=== PATIENT | female | born 1980 | race Caucasian/White ===

== ENCOUNTER 2022-07-23 17:14 | Emergency (ER) | payer OTHER, SELFPAY ==
--- NOTE | ~2022-07-23 | XR_ITS ---
EXAMINATION: XR HAND, RIGHT CLINICAL INFORMATION: Crush injury COMPARISON: None available. TECHNIQUE: PA, lateral, and oblique views of the right hand. FINDINGS: There is a minimally displaced fracture through the distal end of the distal first phalanx. The bones and soft tissues are otherwise unremarkable. No other fracture. Alignment is anatomic. Joint spaces are maintained. No erosions or soft tissue calcifications. XR/XR hand RT 2V IMPRESSION: Fracture of the distal end of the distal phalanx of the thumb.
[2022-07-23 17:25] VITALS: BP 129/85; PULSE 72; RESP 18; TEMP 36.9; O2SAT 99; BMI 28.3
--- NOTE | 2022-07-23 17:25 | ED.GENADULT ---
HPI - General Adult General Chief complaint: Extremity Injury, Upper Stated complaint: ? broken finger right hand Time Seen by Provider: 07/23/22 17:37 Source: patient and RN notes reviewed Mode of arrival: ambulatory Limitations: no limitations History of Present Illness HPI narrative: This is a 42-year-old female who presents emergency department with complaints right thumb pain since today. Patient reports that she accidentally slammed her right thumb in her front door. Patient immediately felt and reported to the emergency department today. Denies any numbness tingling. Reports pain with movement and with palpation. Denies history of similar symptoms in the past. No other complaints or concerns at this time MD complaint: Right thumb pain Onset (ago): minute(s) Location: upper extremity Severity: moderate Quality: aching Pain Consistency: constant Relieving factors: immobilization Exacerbating factors: movement Associated symptoms: denies other symptoms Treatments prior to arrival: none Related Data Previous Rx's Medication Instructions Recorded ibuprofen 800 mg tablet 800 mg PO Q8H PRN pain #45 tabs 07/23/22 Allergies Allergy/AdvReac Type Severity Reaction Status Date / Time Unable to Assess Allergy Unverified 07/23/22 17:26 Review of Systems Review of Systems: Constitutional: No Weight loss, No Fever, No Chills ENT/Mouth: No Ear Pain, No Nasal Congestion, No Sinus Pain, No Hoarseness, No sore throat, No Rhinorrhea, No Swallowing Difficulty Cardiovascular: No Chest Pain, No SOB Respiratory: No Cough, No Sputum, No Wheezing Gastrointestinal: No Nausea, No Vomiting, No Diarrhea, No Constipation, No Abdominal pain Genitourinary: No Dysuria, No Urinary Frequency, No Hematuria, No Urinary Incontinence/retention, No Urgency, No Flank Pain Musculoskeletal:+ joint pain, No Myalgias, No Joint Swelling Skin: No Skin Lesions, No rash Neuro: No Weakness, No Numbness, No Paresthesias PMFSH Social History Social History Advance Directives: No Advance Directives Information Provided: No Physical Exam ED Vital Signs: Vital Signs - 24 hr 07/23/22 17:25 07/23/22 18:16 Temperature 98.4 F 98.4 F Pulse Rate 72 84 Respiratory Rate 18 18 Blood Pressure 129/85 124/79 Pulse Oximetry 99 98 Oxygen Delivery Method Room Air Room Air BMI result Body Mass Index 28.3 Const Other: General: Awake, alert, and oriented X3. No acute distress. HEENT: Normal inspection CVS: Normal heart rate and rhythm. Pulses normal. Respiratory: No respiratory distress Skin: Warm, dry, no rashes noted to exposed skin. Normal skin color. Normal skin turgor. Extremities: Tenderness to palpation over the right 1st distal phalanx, able to flex and extend move entire thumb without difficulty. Distal sensation and circulation intact. No open wounds or drainage. Neuro: Oriented X 3. No motor deficit. No sensory deficit. Course Course Course Narrative: RME performed by Dipti Son PA-C. Patient is a 42 year old assigned female at presenting to the emergency department with right thumb pain. Patient slammed her right thumb in a door. Imaging ordered. Patient placed back in the waiting room pending room availability and results. Medications Administered Discontinued Medications Generic Name Dose Route Start Last Admin Trade Name Freq PRN Reason Stop Dose Admin Ketorolac Tromethamine 30 mg 07/23/22 17:45 07/23/22 17:59 Ketorolac Tromethamine 30 Mg/Ml Vial IM 07/23/22 17:46 30 mg ONCE ONE Administration Procedures Orthopedic Splinting/Casting Injury #1: Side: right Upper Extremity Injury Location: finger Upper Extremity Immobilizer: aluminum form splint, finger (other) and marisa tape Additional Comments: Distal sensation intact. Medical Decision Making Medical Decision Making MDM Narrative: 42-year-old female presenting to emergency department for right thumb pain since today. Patient accidentally slammed her right thumb in the house door. X-ray revealing distal phalanx fracture. Patient's right thumb placed in finger splint and given referral to [facility] for further management. Patient medicated in the department with Toradol 30 mg IM. This is not open fracture therefore I will not cover with prophylactic antibiotics. Discharge on prescription for ibuprofen, given precautions on when to return. Patient understands and agrees with plan. Differential Diagnosis Differential Diagnoses: The differential diagnosis associated with the presentation includes Right thumb fracture, contusion, hematoma, dislocation Independent Interpretation I performed an independent interpretation of an: Plain X-Ray Interpretation: I reviewed the x-ray and agree with radiology report. Radiology Impression Discussion of test interpretation with radiology: I have reviewed the radiologist's reading. Radiologist Impression: EXAMINATION: XR HAND, RIGHT CLINICAL INFORMATION: Crush injury? COMPARISON: None available.? TECHNIQUE: PA, lateral, and oblique views of the right hand. FINDINGS: There is a minimally displaced fracture through the distal end of the distal first phalanx. The bones and soft tissues are otherwise unremarkable. No other fracture. Alignment is anatomic. Joint spaces are maintained. No erosions or soft tissue calcifications.? XR/XR hand RT 2V IMPRESSION: Fracture of the distal end of the distal phalanx of the thumb. ? Dictated By: Stoney Hightower MD Signed By: <Electronically signed by Stoney Hightower MD in OV> 07/23/22 182 DD/ [id number] Discharge Plan Discharge Clinical Impression: Fracture of thumb Patient Disposition: Home, Self-Care Instructions: Thumb Fracture (ED) Additional Instructions: Please keep your thumb and the splint until you are seen by Orthopedics. Call Monday to make an appointment. Take prescribed medication as directed. Take with food. Ice and elevate your right thumb as this will help with the inflammation and pain. If any new or worsening symptoms occur please return for re-evaluation. Prescriptions: New ibuprofen 800 mg tablet 800 mg PO Q8H PRN (Reason: pain) Qty: 45 0RF [place] [facility] [place] [facility] [Provider Group] Interventions: ED Discharge Assessment Last Done: 07/23/22 18:52 Discharge Date/Time: 07/23/22 18:52
[2022-07-23] MEDS: Ketorolac Tromethamine 30 MG/ML VIAL IM (17:59)
[2022-07-23 18:16] VITALS: BP 124/79; PULSE 84; RESP 18; TEMP 36.9; O2SAT 98
== END 2022-07-23 18:52 | disposition home or self-care (01) ==
PROVIDERS: Emergency Provider Emergency Medicine
DX: S62.521A Displaced fracture of distal phalanx of right thumb, initial encounter for closed fracture (principal); W23.0XXA Caught, crushed, jammed, or pinched between moving objects, initial encounter; Y93.89 Activity, other specified; Y92.038 Other place in apartment as the place of occurrence of the external cause; Y99.9 Unspecified external cause status
CPT/HCPCS: 29130; 73120; 96372; 99283; 99284; J1885

== ENCOUNTER → 2022-08-04 15:05 | Outpatient (BNVA) | payer OTHER, SELFPAY | PROVIDERS: Visit Provider Physician Assistant | DX: S62.501B Fracture of unspecified phalanx of right thumb, initial encounter for open fracture (principal) | CPT/HCPCS: 99202 ==

== ENCOUNTER 2022-08-19 07:23 | Outpatient (REF) | payer OTHER, SELFPAY ==
--- NOTE | ~2022-08-19 | XR_ITS ---
EXAMINATION: XR HAND, RIGHT CLINICAL INFORMATION: Pain in unspecified hand COMPARISON: Right hand 07/23/2022 TECHNIQUE: PA, lateral, and oblique views of the right hand. FINDINGS: There is no significant change in a minimally displaced fractures of the distal end of the distal first phalanx. The fracture cleft is slightly less distinct consistent with healing. No significant callus formation. The bones and soft tissues are otherwise unremarkable. No other fracture. Alignment is anatomic. Joint spaces are maintained. XR/XR hand RT min 3V IMPRESSION: Healing fracture of the distal end of the distal first phalanx.
== END 2022-08-19 07:24 | disposition home or self-care (01) ==
LOC: HO.HOSX 07:23
PROVIDERS: Visit Provider Physician Assistant
DX: S62.501B Fracture of unspecified phalanx of right thumb, initial encounter for open fracture (principal)
CPT/HCPCS: 73130; 99212

== ENCOUNTER 2023-04-28 23:04 | Emergency (ER) | payer MEDICAID, SELFPAY ==
--- NOTE | ~2023-04-28 | US_ITS ---
EXAMINATION: US ABDOMEN LIMITED CLINICAL INFORMATION: Epigastric pain, question gallbladder stone. COMPARISON: None available. TECHNIQUE: Real-time imaging of the right upper quadrant abdominal viscera. FINDINGS: PANCREAS: The visualized proximal portion of the pancreas is unremarkable. The distal portion is obscured secondary to overlying bowel gas. LIVER: The liver is normal in size. The liver contour is normal. Parenchymal echogenicity is normal. There is a 1.0 cm echogenic lesion in the left hepatic lobe, most suggestive of a hemangioma. Mild intrahepatic biliary ductal dilatation noted. GALLBLADDER: There is a wall echo shadow complex in the gallbladder, consistent with cholelithiasis. Limited evaluation for pericholecystic fluid in this setting. Gallbladder wall thickness appears near the upper limits of normal. Patient reports epigastric pain during the exam. COMMON BILE DUCT: Mildly dilated measuring up to 0.7 cm in diameter. RIGHT KIDNEY: No hydronephrosis. There is a 0.6 cm echogenic, nonshadowing focus in the lower pole cortex which may represent a calculus or angiomyolipoma.. The kidney measures 11.0 cm in maximum dimension. FREE FLUID: None. US/US abdomen limited IMPRESSION: 1. Cholelithiasis with borderline gallbladder wall thickening. Mild intrahepatic and extrahepatic biliary ductal dilatation, raising concern for associated choledocholithiasis. Recommend further evaluation with MRCP. 2. Echogenic lesion in the left hepatic lobe, suggestive of a hemangioma, which could be more definitively assessed with MRI. 3. Echogenic, nonshadowing focus in the lower pole of the right kidney which may represent a calculus or angiomyolipoma.
--- NOTE | 2023-04-28 23:05 | ECG_ITS ---
Test Reason : CHEST PAIN Blood Pressure : / mmHG Vent. Rate : 068 BPM Atrial Rate : 068 BPM P-R Int : 160 ms QRS Dur : 084 ms QT Int : 386 ms P-R-T Axes : 068 072 046 degrees QTc Int : 410 ms Normal sinus rhythm Nonspecific ST and T wave abnormality Borderline ECG No previous ECGs available Referred By: Generic ED Physician Electronically Signed By:REUBEN DAVIS
[2023-04-28 23:10] VITALS: BP 134/77; PULSE 65; RESP 18; TEMP 35.7; O2SAT 100; BMI 24.8
[2023-04-28 23:34] LABS: MANUAL DIFF FLAG NO
[2023-04-28 23:35] LABS: Basophils Absolute Auto 0.1 X10*3/uL (0.0-0.2); Basophils Percent Auto 0.6 % (0-2); Eosinophils Absolute Auto 0.1 X10*3/uL (0.0-0.4); Eosinophils Percent Auto 1.4 % (0-4); Hematocrit 40.3 % (37.0-47.0); Hemoglobin 13.3 g/dl (12.0-16.0); Imm Gran Abs Auto 0.02 X10*3/uL (0.00-0.03); Imm Gran Pct Auto 0.2 % (0.0-0.4); Lymphocytes Absolute Auto 3.7 X10*3/uL (1.2-4.9); Lymphocytes Percent Auto 44.8 % (20-40); Mean Corpuscular Hemoglobin 30.2 pg (27.0-33.0); Mean Corpuscular Volume 91.6 fL (80.0-98.0); Mean Platelet Volume 10.6 fL (9.4-12.3); Monocytes Absolute Auto 0.6 X10*3/uL (0.1-1.2); Monocytes Percent Auto 6.8 % (2-11); Neutrophils Absolute Auto 3.9 x10*3/uL (2.0-8.3); Neutrophils Percent Auto 46.2 % (45-73); Platelet Count 330 X10*3/uL (160-400); Red Cell Distribution Width 12.9 % (11.0-16.0); White Blood Count 8.4 X10*3/uL (4.8-10.8)
--- NOTE | 2023-04-28 23:49 | ED.CHESTPAIN ---
HPI - Chest Pain General Chief Complaint: Chest Pain Stated Complaint: Chest pain Time Seen by Provider: 04/28/23 23:47 Source: patient Mode of arrival: ambulatory Limitations: no limitations History of Present Illness HPI narrative: Patient with no significant past medical history except for anxiety comes here for few days of epigastric pain getting worse feel burning sensation radiating to the mid chest and the back no vomiting blood in the stool no history of ulcer gallstone patient took some Tums without much relief patient very anxious on arrival denies any history of gastritis gallstones in the past Related Data Previous Rx's Medication Instructions Recorded ibuprofen 800 mg tablet 800 mg PO Q8H PRN pain #45 tabs 07/23/22 Allergies Allergy/AdvReac Type Severity Reaction Status Date / Time No Known Allergies Allergy Verified 04/28/23 23:09 [No Known Allergies*] Review of Systems Review of Systems: Yes all other systems are reviewed and are negative [facility] Social History Social History Alcohol intake: never Patient Tobacco Use Status: Never used Tobacco Smoked in Last 30 Days: No Use of substances other than those prescribed or required for medical reasons: No Advance Directives: No Advance Directives Information Provided: Yes Patient : No Current occupational status: unemployed Current occupation: right hand dominant Physical Exam Vital Signs: Vital Signs: Last Vital Signs Temp 96.3 F L 04/28/23 23:10 Pulse 66 04/29/23 01:45 Resp 18 04/29/23 01:59 BP 112/64 04/29/23 01:45 Pulse Ox 100 04/28/23 23:10 O2 Del Method Room Air 04/28/23 23:10 BMI result Body Mass Index 24.8 Appearance: Alert. Oriented X3. No acute distress. Eyes: No pallor or icterus ENT: Pharynx normal. Oral Mucosa moist Neck: Normal inspection. Neck supple. CVS: Normal heart rate and rhythm. Pulses normal. Respiratory: No respiratory distress. Equal air entry bilateral, no wheezing/rales/rhonchi Abdomen: Soft and epigastric tenderness no rebound tenderness or guarding Bowel sounds are present, no mass palpable, no CVA tenderness Skin: Skin warm and dry. Normal skin color. Normal skin turgor. Extremities: No lower extremity edema. No calf tenderness Neuro: Oriented X 3. Medications Administered Discontinued Medications Generic Name Dose Route Start Last Admin Trade Name Missy PRN Reason Stop Dose Admin Al Hydroxide/Mg Hydroxide 30 ml 04/28/23 23:56 04/29/23 00:24 Magnesium Hydrox/Alum Hydrox 30 Ml Oral.Susp PO 04/28/23 23:57 30 ml ONCE ONE Administration Lidocaine HCl 15 ml 04/28/23 23:56 04/29/23 00:24 Lidocaine Hcl Viscous 2 % 15 Ml Solution MUCOUS MEM 04/28/23 23:57 15 ml ONCE ONE Administration Lorazepam 2 mg 04/28/23 23:56 04/29/23 00:24 Lorazepam 1 Mg Tablet PO 04/28/23 23:57 2 mg ONCE ONE Administration Morphine Sulfate 4 mg 04/29/23 01:46 04/29/23 01:59 Morphine Sulfate 4 Mg/Ml Cartridge IVPUSH 04/29/23 01:47 4 mg ONCE ONE Administration Protocol Ondansetron HCl 4 mg 04/29/23 01:47 04/29/23 01:59 Ondansetron Hcl 4 Mg/2 Ml Vial IVPUSH 04/29/23 01:48 4 mg ONCE ONE Administration Medical Decision Making Medical Decision Making [facility] Narrative: Patient felt better after lidocaine viscous and Maalox started having pain again more anxious now will get ultrasound to rule out biliary colic 330 am patient feeling much better no pain at this time no nausea no vomiting ultrasound showed slight dilated intrahepatic ducts but patient has no pain and LFTs are normal patient feeling much better to go home advised to follow with surgeon and do not take any fried foods Differential Diagnosis Differential Diagnoses: The differential diagnosis associated with the presentation includes Acute gastritis/pancreatitis/anxiety/biliary colic Admission/Observation Consideration of admission/observation: Escalation of care including admission/observation considered Lab Data [facility] Lab Attestation statement: I reviewed the patient's lab results. 04/28/23 23:19 04/28/23 23:19 Labs: Lab Results 04/28/23 Range/Units 23:19 WBC 8.4 (4.8-10.8) X10*3/uL RBC 4.40 (4.20-5.50) X10*6/uL Hgb 13.3 (12.0-16.0) g/dl Hct 40.3 (37.0-47.0) % MCV 91.6 (80.0-98.0) fL MCH 30.2 (27.0-33.0) pg MCHC 33.0 (31.0-35.0) g/dl RDW 12.9 (11.0-16.0) % Plt Count 330 (160-400) X10*3/uL MPV 10.6 (9.4-12.3) fL Immature Gran % (Auto) 0.2 (0.0-0.4) % Neut % (Auto) 46.2 (45-73) % Lymph % (Auto) 44.8 H (20-40) % [place] % (Auto) 6.8 (2-11) % Eos % (Auto) 1.4 (0-4) % Baso % (Auto) 0.6 (0-2) % Lymph # (Auto) 3.7 (1.2-4.9) X10*3/uL [place] # (Auto) 0.6 (0.1-1.2) X10*3/uL Eos # (Auto) 0.1 (0.0-0.4) X10*3/uL Baso # (Auto) 0.1 (0.0-0.2) X10*3/uL Abs Immat Gran (auto) 0.02 (0.00-0.03) X10*3/uL Absolute Neuts (auto) 3.9 (2.0-8.3) x10*3/uL Absolute Nucleated RBC 0.000 (0.0-0.012) X10*3/uL Nucleated RBC % (auto) 0.0 (0.0-0.2) /100WBC Sodium 145 (135-145) mmol/L Potassium 3.5 (3.3-5.1) mmol/L Chloride 104 (96-108) mmol/L Carbon Dioxide 30 H (22-29) mmol/L Anion Gap 15 (12-20) BUN 12 (9-16) mg/dL Creatinine 0.83 (0.5-1.4) mg/dL Estim Creat Clear Calc 79.2 Estimated GFR > 60 Random Glucose 119 H (60-115) mg/dL Calcium 10.1 (8.4-10.2) mg/dL Total Bilirubin 0.3 (0.0-1.0) mg/dL AST 45 H (5-31) U/L ALT 20 (0-31) U/L Alkaline Phosphatase 60 (39-117) U/L Troponin I High Sens < 2.7 (<3.5-17.0) ng/L Total Protein 7.8 (6.5-8.0) g/dL Albumin 4.7 (3.5-5.0) g/dL Independent Interpretation I performed an independent interpretation of an: EKG and Ultrasound Interpretation: Normal sinus rhythm heart rate 68 beats per minute normal interval normal axis no acute ST T wave changes impression normal EKG Radiology Impression Discussion of test interpretation with radiology: I have reviewed the radiologist's reading. Discharge Plan Discharge Clinical Impression: Acute gastritis Patient Disposition: Home, Self-Care Prescriptions: No Action ibuprofen 800 mg tablet 800 mg PO Q8H PRN (Reason: pain) Qty: 45 0RF
[2023-04-28 23:50] LABS: Alanine Aminotransferase 20 U/L (0-31); Albumin Level 4.7 g/dL (3.5-5.0); Alkaline Phosphatase 60 U/L (39-117); Anion Gap 15 (12-20); Aspartate Amino Transferase 45 U/L (5-31); Bilirubin Total 0.3 mg/dL (0.0-1.0); Blood Urea Nitrogen 12 mg/dL (9-16); Calcium 10.1 mg/dL (8.4-10.2); Carbon Dioxide 30 mmol/L (22-29); Chloride 104 mmol/L (96-108); Creatinine Clr Calc Pharmacy 79.2; Estimated Glomerular Filt Rate > 60; Glucose Random 119 mg/dL (60-115); Potassium 3.5 mmol/L (3.3-5.1); Sodium 145 mmol/L (135-145); Total Protein 7.8 g/dL (6.5-8.0)
[2023-04-29 00:04] LABS: Troponin-I High Sensitivity < 2.7 ng/L (<3.5-17.0)
[2023-04-29] MEDS: Magnesium Hydrox/Alum Hydrox 30 ML ORAL.SUSP PO (00:24)
[2023-04-29] MEDS: Lidocaine HCl Viscous 2 % 15 ML SOLUTION MUCOUS MEM (00:24)
[2023-04-29] MEDS: LORazepam 1 MG TABLET 2 MG PO (00:24)
[2023-04-29 01:45] VITALS: BP 112/64; PULSE 66; RESP 18
[2023-04-29 01:59] VITALS: RESP 18
[2023-04-29] MEDS: ondansetron HCL 4 MG/2 ML VIAL IVPUSH (01:59)
[2023-04-29] MEDS: Morphine Sulfate 4 MG/ML CARTRIDGE IVPUSH (01:59)
[2023-04-29 03:42] VITALS: BP 123/68; PULSE 68; RESP 16
[2023-04-29 03:49] LABS: Lipase 55 U/L (8-78)
== END 2023-04-29 03:59 | disposition home or self-care (01) ==
PROVIDERS: Emergency Provider Internal Medicine
DX: K29.00 Acute gastritis without bleeding (principal)
CPT/HCPCS: 36415; 76705; 80053; 83690; 84484; 85025; 93005; 96374; 96375; 99284; 99285; J2270; J2405

== ENCOUNTER → 2023-04-28 23:05 | Outpatient (BNV) | payer MEDICAID, SELFPAY | PROVIDERS: Emergency Provider Internal Medicine; Visit Provider Internal Medicine | DX: R07.9 Chest pain, unspecified (principal) | CPT/HCPCS: 93010 ==

== ENCOUNTER 2023-04-30 11:18 | Inpatient (IN) | payer MEDICAID, SELFPAY ==
--- NOTE | ~2023-04-30 | US_ITS ---
EXAMINATION: US ABDOMEN LIMITED CLINICAL INFORMATION: Right upper quadrant pain. COMPARISON: Ultrasound of 04/29/2023 TECHNIQUE: Real-time imaging of the right upper quadrant limited to the gallbladder. FINDINGS: GALLBLADDER: There are multiple shadowing calculi within the gallbladder. The gallbladder wall measures 3 mm and there appears to be a trace amount of pericholecystic fluid. The patient is tender in the region of the gallbladder. The common bile duct is dilated up to 7 mm in the johnna. The distal common bile duct is not visualized. US/US abdomen limited IMPRESSION: 1. Cholelithiasis with a positive sonographic Charles sign and mild pericholecystic edema indicative of acute cholecystitis. 2. Dilatation of the proximal common bile duct. The distal duct is not visualized. A distal CBD stone is therefore not excluded
[2023-04-30 11:29] VITALS: BP 150/75; PULSE 80; RESP 16; TEMP 36.9; O2SAT 98; BMI 25.7
--- NOTE | 2023-04-30 11:38 | ED_ITS ---
HPI - General Adult General Chief complaint: Abdominal Pain Stated complaint: Seen 2 days ago - abd pain Time Seen by Provider: 04/30/23 11:46 Source: patient Mode of arrival: ambulatory Limitations: no limitations History of Present Illness HPI narrative: 43-year-old female presents to the emergency department for re-evaluation of epigastric pain, patient was seen here on much 1st was told she had gallstones and was discharged home, she reports she continues to have pain with eating, she tells me fluids are okay however when she has solid food she feels a burning sensation in her epigastric region and she just does not feel well and has not been able to keep much food down he tells me she is afraid it might be her gallbladder. She jaundice, fevers, chills, chest pain, shortness of breath, nausea, vomiting headache, vision change, dizziness, weakness, changes in urination or bowel habits. Related Data Previous Rx's Medication Instructions Recorded ibuprofen 600 mg tablet 600 mg PO Q6H PRN fever or pain 04/29/23 #30 tabs tramadol 50 mg tablet 50 mg PO Q6H PRN pain #20 tabs 04/29/23 Allergies Allergy/AdvReac Type Severity Reaction Status Date / Time No Known Allergies Allergy Verified 04/28/23 23:09 [No Known Allergies*] Review of Systems 2 Review of Systems: Yes all other systems are reviewed and are negative PMFSH Past Medical History Attestation statement: The following information was validated with the patient. Source: old records reviewed and nursing notes reviewed Surgical History (Updated 05/01/23 @ 08:53 by Анна Lara PA-C) Hx of tubal ligation Hx of section Social History Social History Alcohol intake: never Patient Tobacco Use Status: Former Tobacco user Smoked in Last 30 Days: No Use of substances other than those prescribed or required for medical reasons: No Advance Directives: No Advance Directives Information Provided: Yes Nutrition Risks: No Nutritional Risk Patient : No Current occupational status: unemployed Current occupation: right hand dominant Physical Exam ED Vital Signs: Vital Signs - 24 hr 04/30/23 11:29 Temperature 98.5 F Pulse Rate 80 Respiratory Rate 16 Blood Pressure 150/75 H Pulse Oximetry 98 Oxygen Delivery Method Room Air BMI result Body Mass Index 25.7 vss Appearance: Alert.? Oriented X3.? No acute distress.? Head: Normocephalic, atraumatic, no step-offs or deformities Eyes: Pupils equal, round and reactive to light.? ENT: Pharynx normal.? Neck: Normal inspection.? Neck supple.? CVS: Normal heart rate and rhythm.? Pulses normal.? Respiratory: No respiratory distress.? Breath sounds normal.? Abdomen: Soft and no abdominal tenderness to palpation. Negative [place], [place] Skin: Skin warm and dry.? Normal skin color.? Normal skin turgor.? Extremities: No lower extremity edema.? No calf ttp. 5/5 strength to bilateral upper and lower extremities Neuro: Oriented X 3.? No motor deficit.? No sensory deficit. CN 2-12 intact Course Course Course Narrative: RME- 43-year-old female presents for evaluation of upper abdominal pain. Patient was seen here 2 days ago had an ultrasound could not rule out choledocholithiasis. At the time she had normal LFTs. Plan for repeat labs and ultrasound. She is well-appearing Reevaluation(s) Reevaluation #1: CBC unremarkable. Chemistry no acute findings requiring intervention. Slight bump in transaminases. US showing cholelithiasis with a positive sonographic Charles sign and mild pericholecystic edema indicative of acute cholecystitis. Will admit patient to the surgical team for likely cholecystectomy. Time: 12:34 Medications Administered Generic Name Dose Route Start Last Admin Trade Name Freq PRN Reason Stop Dose Admin Dextrose/Lactated Ringer's 1,000 mls @ 125 mls/hr 04/30/23 13:00 05/01/23 05:14 D5lr IVCONT 125 mls/hr .Q8H GRUPO Administration Sodium Chloride 3 ml 04/30/23 16:00 05/01/23 09:31 0.9 % Sodium Chloride Flush 3 Ml Syringe IVFLUSH Not Given QSHIFT GRUPO Zolpidem Tartrate 5 mg 04/30/23 12:46 04/30/23 23:30 Zolpidem Tartrate 5 Mg Tablet PO 5 mg BEDTIME PRN Administration Insomnia Discontinued Medications Generic Name Dose Route Start Last Admin Trade Name Freq PRN Reason Stop Dose Admin Acetaminophen 1,000 mg in 100 mls @ 400 mls/hr 04/30/23 13:00 05/01/23 09:29 Ofirmev IV 05/01/23 07:14 Infused Q6H GRUPO Infusion Medical Decision Making Medical Decision Making [facility] Narrative: 43-year-old female presents with epigastric pain for years worsening acutely over the past week. Physical exam benign no abdominal tenderness on palpation. Concerns for gastritis versus GERD vs billary colic. Unlikely cholecystitis, cholangitis, choledocholithiasis, appendicitis, obstruction, diverticulitis, pancreatitis. Plan labs, urine Differential Diagnosis Differential Diagnoses: The differential diagnosis associated with the presentation includes Concerns for gastritis versus GERD vs billary colic.. Unlikely cholecystitis, cholangitis, choledocholithiasis, appendicitis, obstruction, diverticulitis, pancreatitis. Admission/Observation Consideration of admission/observation: Escalation of care including admission/observation considered possible Consult Healthcare Provider Management of the patient was discussed with: Supervisor [employer] Lab Data MDM Lab Attestation statement: I reviewed the patient's lab results. 04/30/23 11:42 04/30/23 11:42 Labs: Lab Results 04/30/23 04/30/23 Range/Units 11:42 12:42 WBC 6.9 (4.8-10.8) X10*3/uL RBC 4.70 (4.20-5.50) X10*6/uL Hgb 13.9 (12.0-16.0) g/dl Hct 43.3 (37.0-47.0) % MCV 92.1 (80.0-98.0) fL MCH 29.6 (27.0-33.0) pg MCHC 32.1 (31.0-35.0) g/dl RDW 13.0 (11.0-16.0) % Plt Count 307 (160-400) X10*3/uL MPV 10.5 (9.4-12.3) fL Immature Gran % (Auto) 0.1 (0.0-0.4) % Neut % (Auto) 66.3 (45-73) % Lymph % (Auto) 23.8 (20-40) % [place] % (Auto) 6.8 (2-11) % Eos % (Auto) 2.3 (0-4) % Baso % (Auto) 0.7 (0-2) % Lymph # (Auto) 1.6 (1.2-4.9) X10*3/uL [place] # (Auto) 0.5 (0.1-1.2) X10*3/uL Eos # (Auto) 0.2 (0.0-0.4) X10*3/uL Baso # (Auto) 0.1 (0.0-0.2) X10*3/uL Abs Immat Gran (auto) 0.01 (0.00-0.03) X10*3/uL Absolute Neuts (auto) 4.6 (2.0-8.3) x10*3/uL Absolute Nucleated RBC 0.000 (0.0-0.012) X10*3/uL Nucleated RBC % (auto) 0.0 (0.0-0.2) /100WBC Sodium 143 (135-145) mmol/L Potassium 4.1 (3.3-5.1) mmol/L Chloride 105 (96-108) mmol/L Carbon Dioxide 30 H (22-29) mmol/L Anion Gap 12 (12-20) BUN 13 (9-16) mg/dL Creatinine 0.84 (0.5-1.4) mg/dL Estim Creat Clear Calc 79.5 Estimated GFR > 60 Random Glucose 113 (60-115) mg/dL Calcium 9.7 (8.4-10.2) mg/dL Total Bilirubin 0.8 (0.0-1.0) mg/dL AST 113 H (5-31) U/L ALT 144 H (0-31) U/L Alkaline Phosphatase 106 (39-117) U/L Total Protein 8.2 H (6.5-8.0) g/dL Albumin 4.9 (3.5-5.0) g/dL Lipase 45 (8-78) U/L Urine Color Dark Yellow Urine Appearance Clear Urine pH 5.5 (5.0-9.0) Ur Specific [place] >= 1.030 H (1.005-1.025) Urine Protein Trace (Neg-Trace) mg/dL Urine Glucose (UA) Negative (Negative) mg/dL Urine Ketones Trace (Negative) mg/dL Urine Blood Trace H (Negative) Urine Nitrite Negative (Negative) Ur Leukocyte Esterase Small (1+) H (Negative) Urine RBC 0-2 (0-2) /HPF Urine WBC 0-5 (0-5) /HPF Ur Squamous Epith Cells 3-5 (0-2) /HPF Urine Bacteria None Seen (None Seen) Hyaline Casts 3-5 (0-2) /LPF Independent Interpretation I performed an independent interpretation of an: Ultrasound ( US/US abdomen limited IMPRESSION: 1. Cholelithiasis with borderline gallbladder wall thickening. Mild intrahepatic and extrahepatic biliary ductal dilatation, raising concern for associated choledocholithiasis. Recommend further evaluation with MRCP. 2. Echogenic lesion in the left hepatic lobe,) Radiology Impression Discussion of test interpretation with radiology: I have reviewed the radiologist's reading. External Record Review External record reviewed: Inpatient record, Office record, Outpatient record, Prior outpatient labs, Prior outpatient radiology, Primary care record and Outside ED record Chronic Conditions Patient?s care impacted by: Other (gallstones ) Critical Care Time Critical Care Time Critical Care Time: Yes Total Critical Care Time: 45 Attestation: I attest to this time spent taking care of the patient, obtaining history, physical, reviewing labs, imaging, speaking to my attending, speaking to specialist. Discharge Plan Discharge Clinical Impression: Acute cholecystitis Patient Disposition: Admitted As Inpatient
[2023-04-30 11:47] LABS: MANUAL DIFF FLAG NO
[2023-04-30 11:50] LABS: Basophils Absolute Auto 0.1 X10*3/uL (0.0-0.2); Basophils Percent Auto 0.7 % (0-2); Eosinophils Absolute Auto 0.2 X10*3/uL (0.0-0.4); Eosinophils Percent Auto 2.3 % (0-4); Hematocrit 43.3 % (37.0-47.0); Hemoglobin 13.9 g/dl (12.0-16.0); Imm Gran Abs Auto 0.01 X10*3/uL (0.00-0.03); Imm Gran Pct Auto 0.1 % (0.0-0.4); Lymphocytes Absolute Auto 1.6 X10*3/uL (1.2-4.9); Lymphocytes Percent Auto 23.8 % (20-40); Mean Corpuscular HGB Conc 32.1 g/dl (31.0-35.0); Mean Corpuscular Hemoglobin 29.6 pg (27.0-33.0); Mean Corpuscular Volume 92.1 fL (80.0-98.0); Mean Platelet Volume 10.5 fL (9.4-12.3); Monocytes Absolute Auto 0.5 X10*3/uL (0.1-1.2); Monocytes Percent Auto 6.8 % (2-11); Neutrophils Absolute Auto 4.6 x10*3/uL (2.0-8.3); Neutrophils Percent Auto 66.3 % (45-73); Platelet Count 307 X10*3/uL (160-400); White Blood Count 6.9 X10*3/uL (4.8-10.8)
[2023-04-30 12:02] LABS: Alanine Aminotransferase 144 U/L (0-31); Albumin Level 4.9 g/dL (3.5-5.0); Alkaline Phosphatase 106 U/L (39-117); Anion Gap 12 (12-20); Aspartate Amino Transferase 113 U/L (5-31); Bilirubin Total 0.8 mg/dL (0.0-1.0); Blood Urea Nitrogen 13 mg/dL (9-16); Calcium 9.7 mg/dL (8.4-10.2); Carbon Dioxide 30 mmol/L (22-29); Chloride 105 mmol/L (96-108); Creatinine Clr Calc Pharmacy 79.5; Estimated Glomerular Filt Rate > 60; Glucose Random 113 mg/dL (60-115); Lipase 45 U/L (8-78); Potassium 4.1 mmol/L (3.3-5.1); Sodium 143 mmol/L (135-145); Total Protein 8.2 g/dL (6.5-8.0)
[2023-04-30 12:47] LABS: Appearance Urine Clear; Color Urine Dark Yellow; Glucose Urine UA Negative (Negative); Leukocyte Esterase Urine Small (1+) (Negative); Nitrite Urine Negative (Negative); PH 5.5 (5.0-9.0); Specific Gravity - Urine >= 1.030 (1.005-1.025); UMIC TRIGGER UACC YES; Urine Blood Trace (Negative); Urine Ketones Trace mg/dL (Negative); Urine Protein Trace mg/dL (Neg-Trace)
[2023-04-30 12:56] LABS: Bacteria Urine None Seen (None Seen); RBC Urine 0-2 /HPF (0-2); UACC Culture Trigger YES; WBC Urine 0-5 /HPF (0-5)
--- NOTE | 2023-04-30 13:15 | PHA.MEDREC ---
Pharmacy Consult ? Medication Reconciliation Pharmacy has completed the medication reconciliation. spoke with patient and family to confirm medications. Tramadol was confirmed by PDMP.
[2023-04-30] MEDS: Acetaminophen 1,000 MG/100 ML PIGGYBACK 400 MG IV (13:51)
[2023-04-30] MEDS: Dextrose 5 % and Lactated Ring 1,000 ML 125 ML IVCONT ×2 (14:09→21:29)
[2023-04-30 14:42] VITALS: BP 108/58; PULSE 70; RESP 16; TEMP 36.7; O2SAT 98
--- NOTE | 2023-04-30 18:50 | PC.NURSE ---
pt in no pain, plan for OR tomorrow, she and partner at bedside aware of plan. pt NPO. D5 LR infusing trough 20G in LAC at 125 ml/hr. pt with no complaints, NAD, skin PWD, ambulating to the BR independently.
[2023-04-30 19:08] VITALS: BP 112/60; PULSE 59; RESP 17; TEMP 36.8; O2SAT 100
[2023-04-30] MEDS: Acetaminophen 1,000 MG/100 ML PIGGYBACK 1000 MG IV (19:53)
[2023-04-30 21:10] VITALS: BP 127/63; PULSE 62; RESP 18; TEMP 36.6; O2SAT 99
[2023-04-30] MEDS: Zolpidem Tartrate 5 MG TABLET PO (23:30)
[2023-05-01] VITALS (16 sets, daily range): BP systolic 104–131; BP diastolic 59–83; PULSE 54–81; RESP 16–20; TEMP 36.1–36.8; O2SAT 97–100; BMI 24.5
[2023-05-01] MEDS: Acetaminophen 1,000 MG/100 ML PIGGYBACK 400 MG IV ×2 (01:17→07:51)
[2023-05-01] MEDS: Dextrose 5 % and Lactated Ring 1,000 ML 125 ML IVCONT ×2 (05:14→17:21)
--- NOTE | 2023-05-01 06:48 | PC.NURSE ---
assumed care pf pt at 314. PT oob independently to use bathroom and brush teeth. Spouse at bedside. pt medicated as per apr. Plan of care ongoing
[2023-05-01 07:02] LABS: Alanine Aminotransferase 123 U/L (0-31); Albumin Level 3.9 g/dL (3.5-5.0); Alkaline Phosphatase 88 U/L (39-117); Aspartate Amino Transferase 91 U/L (5-31); Bilirubin Direct 0.3 mg/dL (0.0-0.5); Bilirubin Total 0.6 mg/dL (0.0-1.0); Total Protein 6.3 g/dL (6.5-8.0)
--- NOTE | 2023-05-01 07:50 | PC.NURSE ---
pt is a/o x 4 (lithuanian speaking). pt's is at bedside. pt c/o 10/06 epigastric pain/disc. med x 1 with apap 1gm as ordered. pt speaks in full sentences. amb (i) gait steady. pt/ aware of plan of care. pt continues to be npo. will continue to monitor.
--- NOTE | 2023-05-01 08:30 | PC.NURSE ---
dr. mathur at bedside, pt/ aware of plan of care.
--- NOTE | 2023-05-01 08:46 | P.HPGS_ITS ---
<Statement entered by Francisco Rosado MD - 05/01/23 10:18> Patient seen and examined; History and images reviewed. I concur with the finding, assessment and plan. We discussed laparoscopic or possible open cholecystectomy given her persistent and worsening symptoms and after a discussion of the procedure, alternatives and risks, she consents to the surgery. She will be added on to the operative schedule. History of Present Illness History of Present Illness Date of Service: 05/01/23 Chief complaint: Acute Cholecystitis Narrative: Tatyana Hernandez is a 43 year old female with no significant PMH who presents to the ED for complaints of epigastric pain. Patient reports the pain started Monday night after eating [id number]. The pain was so severe and associated with nausea she presented to the ED for initial evaluation. She was told she had gallstones and was discharged to home. Since Monday, she has had persistent epigastric abdominal pain and has been unable to tolerate solid food. She therefore came back to the ED yesterday morning. Work up in the ED included CBC, BMP, LFTs which was significant for mild transaminitis, improved from Monday. Bilirubin is normal. ABD US shows gallstones, gallbladder wall thickening and pericholecystic fluid. The common bile duct is dilated up to 7 mm. She reports mild improvement of her abdominal pain with medication. She denies fever, diarrhea, vomiting. She reports she has had nausea and occasional epiga stric pain with food for years however was treating it homeopathically. Review of Systems Constitutional: Constitutional: Denies fever(s) and Denies malaise ENT: Denies dizziness Cardiovascular: Cardiovascular: Denies chest pain and Denies dyspnea Respiratory: Respiratory: Denies dyspnea Gastrointestinal: Gastrointestinal: Reports as per HPI Integumentary/Breasts: Skin/Breast: Denies rash and Denies jaundice Neurologic: Denies dizziness FOR[facility]LY [facility], [facility] Surgical History Surgical History (Updated 05/01/23 @ 08:53 by Анна Lara PA-C) Hx of tubal ligation Hx of section Social History Social History Alcohol intake: never Patient Tobacco Use Status: Former Tobacco user Smoked in Last 30 Days: No Use of substances other than those prescribed or required for medical reasons: No Advance Directives: No Advance Directives Information Provided: Yes Nutrition Risks: No Nutritional Risk Patient : No Current occupational status: unemployed Current occupation: right hand dominant Meds Allergies Allergy/AdvReac Type Severity Reaction Status Date / Time No Known Allergies Allergy Verified 04/28/23 23:09 [No Known Allergies*] Active Medications: Current Medications Hydromorphone HCl (Hydromorphone Hcl 0.5 Mg/0.5 Ml Syringe) 0.5 mg IVPUSH Q3H PRN; Protocol PRN Reason: Pain, Severe (Pain Scale 7-10) Dextrose/Lactated Ringer's (D5lr) 1,000 mls @ 125 mls/hr IVCONT .Q8H [facility] Last Admin: 05/01/23 05:14 Dose: 125 mls/hr Ondansetron HCl (Ondansetron Hcl 4 Mg/2 Ml Vial) 4 mg IVPUSH QID PRN PRN Reason: Nausea Sodium Chloride (0.9 % Sodium Chloride Flush 3 Ml Syringe) 3 ml IVFLUSH QSHIFT [facility] Last Admin: 05/01/23 01:03 Dose: Not Given Zolpidem Tartrate (Zolpidem Tartrate 5 Mg Tablet) 5 mg PO BEDTIME PRN PRN Reason: Insomnia Last Admin: 04/30/23 23:30 Dose: 5 mg Physical Exam Vital Signs: Vital Signs: Last Vital Signs Temp 97.8 F 05/01/23 07:27 Pulse 65 05/01/23 07:27 Resp 17 05/01/23 07:27 BP 112/61 05/01/23 07:27 Pulse Ox 99 05/01/23 07:27 O2 Del Method Room Air 05/01/23 07:27 O2 Flow Rate 98 04/30/23 14:42 BMI result Body Mass Index 25.7 Const: General: comfortable, no acute distress and alert Orientation/consciousness: patient oriented x3 Resp: Effort & Inspection: normal respiratory effort GI: Inspection: No distended Palpation (GI): Soft to palpation, Tenderness to palpation present (GI) in the epigastrum (mild ); Charles's sign negative, no guarding and not rigid Skin: General skin exam: no rashes or lesions noted and no jaundice Neuro: General: patient oriented x3 and moves all extremities Results Results Labs: Short CBC 04/30/23 Range/Units 11:42 WBC 6.9 (4.8-10.8) X10*3/uL Hgb 13.9 (12.0-16.0) g/dl Hct 43.3 (37.0-47.0) % Plt Count 307 (160-400) X10*3/uL BMP 04/30/23 11:42 Sodium 143 Potassium 4.1 Chloride 105 Carbon Dioxide 30 H BUN 13 Creatinine 0.84 Calcium 9.7 Liver Function 04/30/23 05/01/23 Range/Units 11:42 06:07 Total Bilirubin 0.8 0.6 (0.0-1.0) mg/dL Direct Bilirubin 0.3 (0.0-0.5) mg/dL AST 113 H 91 H (5-31) U/L ALT 144 H 123 H (0-31) U/L Alkaline Phosphatase 106 88 (39-117) U/L Albumin 4.9 3.9 (3.5-5.0) g/dL Urine 04/30/23 Range/Units 12:42 Urine Color Dark Yellow Urine Appearance Clear Urine pH 5.5 (5.0-9.0) Ur Specific [place] >= 1.030 H (1.005-1.025) Urine Protein Trace (Neg-Trace) mg/dL Urine Glucose (UA) Negative (Negative) mg/dL Abdominal ultrasound report/results: report reviewed and image reviewed Assessment and Plan (1) Acute cholecystitis: Status: Acute Plan 43 year old female with 4 day history of epigastric pain and nausea with epigastric tenderness on exama nd gallstones, gallbladder wall thickening on imaging consistent with acute cholecystitis. She does have dilated CBD on imaging but only has mild transaminitis without hyperbilirubinemia and her LFTs have downtrended since Monday. She was admitted to the surgical service for further treatment of the acute cholecystitis. It was recommended to proceed with cholecystectomy given the persistence of pain. Risks, benefits, alternatives of laparoscopic possible open cholecystectomy were reviewed with the patient including but not limited to bleeding, infection, numbness, pain, poor healing, injury to the liver, bowel or bile ducts, leak, retained stones and the patient wishes to proceed.? Arrangements will be made for this.?All questions were answered. Repeat LFTs in am. Quality Stroke Does the patient have a stroke diagnosis?: No VTE Prior VTE?: No VTE Risk Level:: Surgical - low VTE Device Contraindication: N/A - Device Ordered VTE Drug Contraindication: Treatment Not Indicated Procedures Date of Service Date of Service: 05/01/23
--- NOTE | 2023-05-01 10:33 | P.CONAN_ITS ---
[facility] Active Problems Active Problems: All Active Problems (Updated 04/30/23 @ 12:34 by MAYA Awad) Acute cholecystitis (Acute) Fracture of thumb, right open (Acute) Surgical History Surgical History Hx of tubal ligation Hx of section History of Problems with Anesthesia: No Social History Social History Alcohol intake: never Patient Tobacco Use Status: Former Tobacco user Current occupational status: unemployed Current occupation: right hand dominant Meds Allergies Allergy/AdvReac Type Severity Reaction Status Date / Time No Known Allergies Allergy Verified 04/28/23 23:09 [No Known Allergies*] Active Medications: Current Medications Hydromorphone HCl (Hydromorphone Hcl 0.5 Mg/0.5 Ml Syringe) 0.5 mg IVPUSH Q3H PRN; Protocol PRN Reason: Pain, Severe (Pain Scale 7-10) Dextrose/Lactated Ringer's (D5lr) 1,000 mls @ 125 mls/hr IVCONT .Q8H [facility] Last Admin: 05/01/23 05:14 Dose: 125 mls/hr Ondansetron HCl (Ondansetron Hcl 4 Mg/2 Ml Vial) 4 mg IVPUSH QID PRN PRN Reason: Nausea Sodium Chloride (0.9 % Sodium Chloride Flush 3 Ml Syringe) 3 ml IVFLUSH QSHIFT [facility] Last Admin: 05/01/23 09:31 Dose: Not Given Zolpidem Tartrate (Zolpidem Tartrate 5 Mg Tablet) 5 mg PO BEDTIME PRN PRN Reason: Insomnia Last Admin: 04/30/23 23:30 Dose: 5 mg Exam Height,Weight and Vital Signs: Height 5 ft 3 in Weight 65.771 kg Last Vital Signs Temp 97.8 F 05/01/23 07:27 Pulse 65 05/01/23 07:27 Resp 17 05/01/23 07:27 BP 112/61 05/01/23 07:27 Pulse Ox 99 05/01/23 07:27 O2 Del Method Room Air 05/01/23 07:27 O2 Flow Rate 98 04/30/23 14:42 Pertinent Lab Results Pertinent Lab Results: Laboratory Tests 04/30/23 04/30/23 05/01/23 11:42 12:42 06:07 WBC 6.9 RBC 4.70 Hgb 13.9 Hct 43.3 MCV 92.1 MCH 29.6 MCHC 32.1 RDW 13.0 Plt Count 307 MPV 10.5 Immature Gran % (Auto) 0.1 Neut % (Auto) 66.3 Lymph % (Auto) 23.8 [place] % (Auto) 6.8 Eos % (Auto) 2.3 Baso % (Auto) 0.7 Lymph # (Auto) 1.6 [place] # (Auto) 0.5 Eos # (Auto) 0.2 Baso # (Auto) 0.1 Abs Immat Gran (auto) 0.01 Absolute Neuts (auto) 4.6 Absolute Nucleated RBC 0.000 Nucleated RBC % (auto) 0.0 Sodium 143 Potassium 4.1 Chloride 105 Carbon Dioxide 30 H Anion Gap 12 BUN 13 Creatinine 0.84 Estim Creat Clear Calc 79.5 Estimated GFR > 60 Random Glucose 113 Calcium 9.7 Total Bilirubin 0.8 0.6 Direct Bilirubin 0.3 AST 113 H 91 H ALT 144 H 123 H Alkaline Phosphatase 106 88 Total Protein 8.2 H 6.3 L Albumin 4.9 3.9 Lipase 45 Urine Color Dark Yellow Urine Appearance Clear Urine pH 5.5 Ur Specific [place] >= 1.030 H Urine Protein Trace Urine Glucose (UA) Negative Urine Ketones Trace Urine Blood Trace H Urine Nitrite Negative Ur Leukocyte Esterase Small (1+) H Urine RBC 0-2 Urine WBC 0-5 Ur Squamous Epith Cells 3-5 Urine Bacteria None Seen Hyaline Casts 3-5 Airway Mallampati Class: II TM Dist: >3cm Neck ROM: Full Loose/Missing/Broken Teeth: No Heart: RRR Lungs: CTA Assessment and Plan Assessment Anesthesia Assessment: Anesthesia Plan Discussed and Chart Reviewed Final Anesthetic Review History of Problems with Anesthesia: No NPO: Yes ASA Class: II Final Preanesthetic Review: Meds/Allgs Chart Reviewed, Consent Obtained/Reviewed and Anes Risks/Benef Reviewed Patient Risk: Low Procedure Risk: Intermediate Anesthetic Plan Anesthetic Plan: GA Disposition: Standard PACU
--- NOTE | 2023-05-01 10:38 | PC.NURSE ---
rn to rn report given to sixto. pt/ aware of plan of care for lap/brian surgery this am.
--- NOTE | 2023-05-01 12:20 | W.PM.OPN ---
Operative Note Operative Note Date of Service: 05/01/23 Narrative: Preoperative diagnosis: Acute cholecystitis, cholelithiasis Postoperative diagnosis: Same Procedure: Laparoscopic cholecystectomy Surgeon: Francisco Rosado MD Tooling Manager: LOREN Kaminski Anesthesia: General endotracheal Indications for procedure: 43-year-old female patient presenting with complaints of abdominal pain in the epigastrium right upper quadrant found to have multiple gallstones within the gallbladder. She has had repeated attacks of abdominal pain and was found on ultrasound to have multiple gallstones filling the gallbladder. Operative findings: Evidence of acute cholecystitis and cholelithiasis. Specimen: gallbladder Estimated blood loss: Less than 2 mL Complications: None Procedure details: Patient was brought to the OR and placed in a supine position. After administering general anesthesia the patient's abdomen was prepped with ChloraPrep and draped in a sterile fashion. A surgical time-out was called the consent confirmed. Patient received preoperative antibiotics and Venodyne boots were in place. Local anesthesia consisting of 0.5% Sensorcaine without epinephrine was infiltrated in a periumbilical region. A 5 mm incision was made above the umbilicus in a transverse fashion. The Veress needle was then inserted while elevating abdominal cavity with towel clips. After positive drop test the abdomen was insufflated to a pressure of 15 mm of mercury. The Veress needle was then removed and a 5 mm trocar inserted. The camera was inserted in the abdomen explored. A 12 mm trocar was then placed in the epigastrium. Two 5 mm trocars placed in the right upper quadrant by the volunteer assistant. The patient was placed in reverse Trendelenburg positioning and rotated to the left. The gallbladder was grasped with the fundus and retracted cephalad by the volunteer assistant. The infundibulum was then grasped and retracted away from the liver bed, also by the volunteer assistant. The Dolphin dissected was then used by the surgeon to dissect the peritoneum off the infundibulum to reveal the junction with the cystic duct. Cystic artery was noted slightly medial and posterior to the cystic duct. After obtaining a critical view the cystic duct was doubly clipped and divided. The cystic artery was then doubly clipped and divided. The gallbladder was then dissected off the liver bed using electrocautery with an L hook. Hemostasis was assured all times using the electrocautery. When the gallbladder is completely dissected off the liver bed was placed in an Endo-Catch bag and brought out through the epigastric incision. The gallbladder was sent to pathology for further examination. The abdomen was then re-examined. The liver bed was irrigated and suctioned dry. No bleeding or bile leak could be identified. CO2 was then evacuated and all trocars removed. Fascia was closed at the epigastric incision using a [id number] 0 Polysorb suture. Skin was closed in all incisions using a subcuticular 4 0 Polysorb suture by both the surgeon and volunteer assistant. Sterile dressings consisting of Steri-Strips, 2 x 2 gauze, and Tegaderm were then applied. The patient tolerated the procedure well. Sponge instrument and needle counts reported as correct. The patient was transferred to PACU in stable condition.
[2023-05-01] MEDS: HYDROmorphone HCl 0.5 MG/0.5 ML SYRINGE IVPUSH ×3 (13:15→22:39)
[2023-05-01] MEDS: ondansetron HCL 4 MG/2 ML VIAL IVPUSH (13:52)
[2023-05-01] MEDS: 0.9 % Sodium Chloride Flush 3 ML SYRINGE IVFLUSH (17:21)
[2023-05-02] MEDS: Dextrose 5 % and Lactated Ring 1,000 ML 125 ML IVCONT ×4 (00:07→20:08)
[2023-05-02] MEDS: Zolpidem Tartrate 5 MG TABLET PO ×2 (02:11→20:06)
[2023-05-02 02:53] VITALS: BP 146/69; PULSE 75; RESP 18; TEMP 36.2; O2SAT 100
[2023-05-02] MEDS: oxyCODONE HCl Immed Release 5 MG TABLET PO ×2 (03:04→11:55)
[2023-05-02 07:19] VITALS: BP 133/77; PULSE 70; RESP 14; TEMP 36.2; O2SAT 99
[2023-05-02] MEDS: HYDROmorphone HCl 0.5 MG/0.5 ML SYRINGE IVPUSH ×4 (07:23→20:06)
--- NOTE | 2023-05-02 07:41 | PM.PNGS ---
Subjective Subjective Date of Service: 05/02/23 Interval history: Complains of right shoulder pain this morning. Was not given a diet for some reason. Has not been out of bed Physical Exam Vital Signs: Vital Signs: Last Vital Signs Temp 97.2 F 05/02/23 07:19 Pulse 70 05/02/23 07:19 Resp 14 05/02/23 07:19 BP 133/77 05/02/23 07:19 Pulse Ox 99 05/02/23 07:19 O2 Del Method Room Air 05/02/23 07:19 O2 Flow Rate 2 05/01/23 14:15 BMI result Body Mass Index 24.5 Const: General: comfortable, no acute distress and alert Orientation/consciousness: patient oriented x3 Resp: Effort & Inspection: normal respiratory effort GI: Other: Trocar incisions clean, dry, and intact. Inspection: No distended Palpation (GI): Soft to palpation, nontender, no guarding and not rigid Skin: General skin exam: no rashes or lesions noted and no jaundice Neuro: General: patient oriented x3 and moves all extremities Objective Data Active Medications Acetaminophen (Acetaminophen 325 Mg Tablet) 650 mg PO QID PRN PRN Reason: headache, temp > 101 Haloperidol Lactate (Haloperidol Lactate 5 Mg/Ml Vial) 1 mg IVPUSH ONCE PRN PRN Reason: Nausea and Vomiting Hydromorphone HCl (Hydromorphone Hcl 0.5 Mg/0.5 Ml Syringe) 0.5 mg IVPUSH Q3H PRN; Protocol PRN Reason: Pain, Severe (Pain Scale 7-10) Last Admin: 05/02/23 07:23 Dose: 0.5 mg Documented By: SANDOVAL Dextrose/Lactated Ringer's (D5lr) 1,000 mls @ 125 mls/hr IVCONT .Q8H [facility] Last Admin: 05/02/23 07:17 Dose: 125 mls/hr Documented By: SANDOVAL Promethazine HCl 6.25 mg/ (Sodium Chloride) 50.25 mls @ 201 mls/hr IV Q4H PRN PRN Reason: Nausea Last Infusion: 05/01/23 18:16 Dose: Infused Documented By: BRENNEN Ondansetron HCl (Ondansetron Hcl 4 Mg/2 Ml Vial) 4 mg IVPUSH QID PRN PRN Reason: Nausea Last Admin: 05/01/23 13:52 Dose: 4 mg Documented By: MARIUM Oxycodone HCl (Oxycodone Hcl Immed Release 5 Mg Tablet) 5 mg PO Q6H PRN PRN Reason: Pain, Moderate(Pain Scale 4-6) Last Admin: 05/02/23 03:04 Dose: 5 mg Documented By: SELENA Sodium Chloride (0.9 % Sodium Chloride Flush 3 Ml Syringe) 3 ml IVFLUSH QSHIFT [facility] Last Admin: 05/02/23 07:05 Dose: Not Given Documented By: SANDOVAL Non-Admin Reason: IV Running Zolpidem Tartrate (Zolpidem Tartrate 5 Mg Tablet) 5 mg PO BEDTIME PRN PRN Reason: Insomnia Last Admin: 05/02/23 02:11 Dose: 5 mg Documented By: SELENA Labs 04/30/23 11:42 04/30/23 11:42 Microbiology Microbiology Results: Microbiology 04/30/23 Unknown Urine Culture - Final Urine clean catch - Urine [place] Procedures Date of Service Date of Service: 05/02/23 Progress Note: A&P Assessment and plan (1) Acute cholecystitis: Status: Acute (2) S/P laparoscopic cholecystectomy: Status: Acute Plan 43-year-old female patient status post laparoscopic cholecystectomy for acute cholecystitis. Tolerated the procedure well. She has not eaten yet therefore will advance to a regular diet (again). Patient must get out of bed and ambulate. Possible discharge later today if diet tolerated. Time Spent With Patient Time: Total time managing care of this patient today ____ minutes. Quality Stroke Does the patient have a stroke diagnosis?: No VTE Prior VTE?: No VTE Risk Level:: Surgical - low VTE Device Contraindication: N/A - Device Ordered VTE Drug Contraindication: Treatment Not Indicated
--- NOTE | 2023-05-02 13:20 | MHC.CM.PN ---
with interpertator met with pt who is independent cm intervention is not indicated dc plan home no servies
[2023-05-02 13:40] VITALS: O2SAT 96
[2023-05-02 15:06] VITALS: BP 109/68; PULSE 74; RESP 18; TEMP 36.9; O2SAT 98
--- NOTE | 2023-05-02 15:42 | PC.NURSE ---
Pts diet advance to regular, Pt tolerated lunch, denies nausea or vomiting, some pain reported with relief from PRN pain medication, Pt has ambulated in the hallway and is now resting in bed, respirations even and unlabored, call calvo within reach.
[2023-05-02 19:09] VITALS: BP 125/68; PULSE 80; RESP 18; TEMP 36.8; O2SAT 99
--- NOTE | 2023-05-02 22:13 | MHC.PIE ---
p; pt c/o insomnia, prn ambien given with no result. i; dr alaniz notified e; will cont to monitor
[2023-05-02] MEDS: Melatonin 3 MG TABLET 6 MG PO (22:35)
[2023-05-03 02:11] VITALS: BP 120/71; PULSE 79; RESP 18; TEMP 36.4; O2SAT 97
[2023-05-03] MEDS: Dextrose 5 % and Lactated Ring 1,000 ML 125 ML IVCONT (03:34)
[2023-05-03 07:12] VITALS: BP 116/58; PULSE 80; RESP 14; TEMP 36; O2SAT 97
[2023-05-03] MEDS: oxyCODONE HCl Immed Release 5 MG TABLET PO (08:20)
--- NOTE | 2023-05-03 08:52 | PM.DS ---
DS: Providers Provider Date of Service: 05/03/23 Date of admission: 04/30/23 12:50 Date of discharge: 05/03/23 Primary care physician: Unknown Physician Admitting clinician: Francisco Rosado Discharging clinician: Francisco Rosado DS: Diagnosis Discharge Diagnosis (1) Acute cholecystitis: Status: Acute (2) S/P laparoscopic cholecystectomy: Status: Acute DS: Summary Hospital Course Hospital Course: Tatyana Hernandez is a 43 year old female with no significant PMH who presents to the ED for complaints of epigastric pain. Patient reports the pain started Monday night after eating [id number]. The pain was so severe and associated with nausea she presented to the ED for initial evaluation. She was told she had gallstones and was discharged to home. Since Monday, she has had persistent epigastric abdominal pain and has been unable to tolerate solid food. She therefore came back to the ED yesterday morning. Work up in the ED included CBC, BMP, LFTs which was significant for mild transaminitis, improved from Monday. Bilirubin is normal. ABD US shows gallstones, gallbladder wall thickening and pericholecystic fluid. The common bile duct is dilated up to 7 mm. Patient was taken to the OR on 05/01/2023 for a laparoscopic or possible open cholecystectomy. Operative findings were consistent with a large distended gallbladder with acute inflammatory changes and multiple gallstones within the gallbladder. She tolerated the procedure well. Of the 1st postoperative day she was advanced to a regular diet but did have some nausea at 1st. High the 2nd postoperative day she was tolerating a regular diet without nausea or vomiting, fever or chills. She is being discharged to home on 05/03/2023 a stable condition. Discharge instructions were to avoid greater than 10 lb and avoid fatty/ fried foods. She will be discharged to home and will follow up in the office in one week. She should call for fever, chills nausea or vomiting, or increased abdominal pain. Time spent discussing smoking cessation with patient: 3 to 10 minutes Status at Discharge Functional status at discharge: independent ambulation Overall status at discharge: patient is back to baseline Time Attestation Total time managing care of this patient today: 20 mintues. Discharge Coordination Time: discharge time of ____ minutes Quality: Safe Use of Opioids Does Pt have an Active Cancer Diagnosis on the Problem List?: No Quality: Stroke Does the patient have a stroke diagnosis?: No Physical Exam Vital Signs: Vital Signs: Last Vital Signs Temp 96.8 F 05/03/23 07:12 Pulse 80 05/03/23 07:12 Resp 14 05/03/23 07:12 BP 116/58 L 05/03/23 07:12 Pulse Ox 97 05/03/23 07:12 O2 Del Method Room Air 05/03/23 07:12 O2 Flow Rate 2 05/01/23 14:15 BMI result Body Mass Index 24.5 Const: General: comfortable, no acute distress and alert Orientation/consciousness: patient oriented x3 Resp: Effort & Inspection: normal respiratory effort GI: Other: Trocar incisions clean, dry, and intact. Inspection: No distended Palpation (GI): Soft to palpation, nontender, no guarding and not rigid Skin: General skin exam: no rashes or lesions noted and no jaundice Neuro: General: patient oriented x3 and moves all extremities DS: Data Data Completed and Pending Completed studies during hospitalization [Text1]: Pending at discharge 05/01/23 12:09 Surgical [PTH] Routine Discharge Plan Discharge Anticipated Discharge Date/Time: 05/03/23 08:50 Patient Disposition: Home, Self-Care Discharge Diagnosis: laparoscopic cholecystectomy Referrals: Francisco Rosado MD [Physician] - 1 Week Physician,Garth Elizalde [Primary Care Provider] - 2 days Discharge Medications: New oxycodone 5 mg tablet 5 mg PO Q6H PRN (Reason: pain (scale score 7-10)) Qty: 10 0RF Rx Instructions: Partial Fill upon patient request. Continued ibuprofen 600 mg tablet 600 mg PO Q6H PRN (Reason: fever or pain) Qty: 30 0RF tramadol 50 mg tablet 50 mg PO Q6H PRN (Reason: pain) Qty: 20 0RF Discharge Orders: Discharge Order (Routine); Ordered 05/03/23 Ordered By: Francisco Rosado Diet: Low fat, low cholesterol Activity on Discharge: No heavy lifting Stand Alone Forms: Patient Portal Discharge page, Work/School Release Activity Restrictions/Additional Instructions: If the incision area is tender, you may apply an ice pack for short intervals (No more than 20 minutes on, followed by at least 20 minutes off). Do not apply heat. Do not use creams, lotions, or topical antibiotics. These can cause infection or allergic reaction. Ok to shower. Remove clear dressings 3 days following your procedure. You have steri strips (small white cloth strips) covering your incision- these will fall off ~1 week. No heavy lifting (>10lbs) or strenuous activity! Follow up in office with Dr. Rosado in 1 week. ([phone]) Call Your Doctor If: -Your temperature exceeds 101.5? F -You experience excessive pain or swelling -You have an unexpected reaction to medication -You have excessive bleeding -You experience continued vomiting/nausea -Your incision begins to separate -Your incision shows signs of infection such as increased redness, swelling, excessive pain, drainage (light blood or clear fluid is normal) or heat Care Plan Goals: Return to baseline health and resume normal activities following recovery period. Health Concerns: acute cholecystitis Plan of Treatment: s/p laparoscopic cholecystectomy f/u in office in 1 week Assessment: Doing well post op
--- NOTE | 2023-05-03 08:56 | MHC.CM.PN ---
pt dcd home no servies needed
== END 2023-05-03 12:52 | disposition home or self-care (01) | DRG 263 ==
LOC: HO.ED 12:36 → HO.EDOVER 20:38 → HO.S3 05-01 14:23
PROVIDERS: Admitting Provider Surgery; Emergency Provider Student in an Organized Health Care Education/Training Program; Visit Provider Surgery
PROC: 0FT44ZZ Resection of Gallbladder, Percutaneous Endoscopic Approach (ICD-10-PCS; CPT 47562; principal; 2023-05-01 11:00)
DX: K80.00 Calculus of gallbladder with acute cholecystitis without obstruction (principal); Z87.891 Personal history of nicotine dependence
CPT/HCPCS: 47562; 36415; 76705; 80053; 80076; 81001; 83690; 85025; 87086; 88304; 99221; 99285; J0131; J1100; J1170; J1885; J2250; J2405; J2550; J2704; J2795; J3010

== ENCOUNTER → 2023-04-30 12:50 | Outpatient (BNV) | payer MEDICAID, SELFPAY | PROVIDERS: Admitting Provider Surgery; Emergency Provider Student in an Organized Health Care Education/Training Program; Visit Provider Physician Assistant Surgical | DX: K81.0 Acute cholecystitis (principal); Z90.49 Acquired absence of other specified parts of digestive tract | CPT/HCPCS: 47562; 99024; 99222 ==

== ENCOUNTER 2023-05-08 12:07 | Inpatient (IN) | payer OTHER, SELFPAY ==
[2023-05-08] VITALS (7 sets, daily range): BP systolic 99–148; BP diastolic 48–77; PULSE 65–91; RESP 13–20; TEMP 36.6–36.9; O2SAT 96–100; BMI 24.6
--- NOTE | ~2023-05-08 | FL_ITS ---
EXAMINATION: XR FLUOROSCOPY WITH IMAGES CLINICAL INFORMATION: ERCP. COMPARISON: None available. TECHNIQUE: Fluoroscopy Supervised By: Dr. Estrella. Fluoroscopy Time: 483.0 seconds. Cumulative Dose: 106.50 mGy. Images: 9. FINDINGS: Imaging demonstrates an endoscope with a wire/catheter extending into the right and left hepatic ducts. Contrast fills bile ducts. No definite filling defects are seen. Please see Dr. Estrella's report for full details. FL/FL guidance in OR IMPRESSION: Fluoroscopy and spot films provided during ERCP.
--- NOTE | ~2023-05-08 | US_ITS ---
EXAMINATION: US ABDOMEN LIMITED CLINICAL INFORMATION: 1 week status post laparoscopic cholecystectomy. Elevated LFTs. COMPARISON: 04/30/2023 TECHNIQUE: Real-time imaging of the right upper quadrant abdominal viscera. FINDINGS: GALLBLADDER: Surgically absent. COMMON BILE DUCT: Dilated in caliber measuring up to 1.3 cm. Central intrahepatic biliary ductal dilatation. US/US abdomen limited IMPRESSION: Dilated common bile duct up to 1.3 cm with central intrahepatic biliary ductal dilatation. The possibility of choledocholithiasis should be considered. MRCP/ERCP should be performed.
--- NOTE | ~2023-05-08 | MR_ITS ---
EXAMINATION: MR ABDOMEN WITHOUT CONTRAST MR CHOLANGIOPANCREATOGRAPHY CLINICAL INFORMATION: Abdominal pain, ultrasound examination shows dilated common bile duct COMPARISON: Ultrasound examination of abdomen on 05/08/2023, 04/29/2023 TECHNIQUE: Examination was performed in a high field strength MRI scanner. Multiplanar multisequence MR imaging of the abdomen was performed without IV contrast enhancement. MR cholangiopancreatography was performed with heavily T2 weighted sequences. 3-dimensional reconstruction of image data was performed. This was performed under concurrent direct supervision and monitoring by radiologist. Maximum intensity projection images were constructed. FINDINGS: MR CHOLANGIOPANCREATOGRAPHY: Gallbladder is surgically absent. Bilateral intra hepatic bile ducts are normal in size without filling defects. Common bile duct measures up to 0.7 cm in diameter, within normal limits for postcholecystectomy status. However, there is a filling defect in distal common bile duct, measuring 0.4 cm in horizontal diameter, 0.6 cm in vertical height, series 6 image #17, series 8 image #1, series 12 image #12, series 4 image #12. Pancreatic duct is normal in size. LIVER: The liver shows a larger 2.3 cm left hepatic dome segment 4 aT2 hyperintense lesion and 2 smaller lateral left hepatic lobe segments 2 and T2 hyperintense lesions measuring 1.1 cm in size and 1.0 cm in size respectively. The calculated hepatic fat percentage is -0.9%, compatible with normal. PANCREAS: No focal pancreatic lesion with abnormal signal can be seen. SPLEEN: Spleen is normal in size without focal lesion. ADRENAL: Bilateral adrenal glands are normal in shape and size. KIDNEYS: Bilateral kidneys are normal in size without focal lesion. MR/MR MRCP IMPRESSION: 1. Status post cholecystectomy. 2. Filling defect in distal common bile duct, measuring 0.4 cm in horizontal diameter, 0.6 cm in vertical height, compatible with choledocholithiasis. 3. Three left hepatic lobe lesions are found in segment 4A and segment 2, largest measuring 2.3 cm in size, reported as echogenic lesion on ultrasound examination, suggestive of hemangiomas. 4. No focal lesion could be seen in lower pole of right kidney over the site of echogenic focus reported on ultrasound examination.
--- NOTE | 2023-05-08 12:11 | ECG_ITS ---
Test Reason : abd pain Blood Pressure : / mmHG Vent. Rate : 090 BPM Atrial Rate : 090 BPM P-R Int : 176 ms QRS Dur : 084 ms QT Int : 328 ms P-R-T Axes : 000 129 -03 degrees QTc Int : 401 ms Suspect limb lead reversal, interpretation assumes no reversal Normal sinus rhythm Inferior infarct , age undetermined Anterolateral infarct , age undetermined Abnormal ECG When compared with ECG of 28-APR-2023 23:09, QRS axis Shifted right Anterolateral infarct is now Present Inferior infarct is now Present Inverted T waves have replaced nonspecific T wave abnormality in Inferior leads Referred By: Generic ED Physician Electronically Signed By:HOWARD PIMENTEL MD
[2023-05-08 12:26] LABS: MANUAL DIFF FLAG NO
--- NOTE | 2023-05-08 12:26 | ED_ITS ---
HPI - General Adult General Chief complaint: Abdominal Pain Stated complaint: chest pain Time Seen by Provider: 05/08/23 13:01 History of Present Illness HPI narrative: The patient is a 43-year-old woman who had a cholecystectomy 1 week ago. This was last Monday. She was discharged from the hospital on Monday 6 days ago. Apparently since discharge she has had fairly persistent epigastric pain that was similar to the pain that she had prior to her surgery. She has been using oxycodone but she has been getting itchy with the oxycodone. The pain radiates to her back. She has had no fever. Pain is quite intense but no definite nausea or vomiting. No diarrhea. Her called the on-call surgeon last night who recommended they call the office this morning. They called the office this morning saying that she was still in a great deal of pain and they were advised to come to the emergency room. Related Data Previous Rx's Medication Instructions Recorded ibuprofen 600 mg tablet 600 mg PO Q6H PRN fever or pain 04/29/23 #30 tabs Allergies Allergy/AdvReac Type Severity Reaction Status Date / Time oxycodone Allergy Itching Verified 05/08/23 12:24 Review of Systems 2 Review of Systems: Yes all other systems are reviewed and are negative [facility] Past Medical History Medical History Acute cholecystitis Surgical History S/P laparoscopic cholecystectomy (05/01/23) Hx of tubal ligation Hx of section Social History Social History Household Members: Spouse and Children Housing: Apartment Do you presently have visiting nurse or other home services: No Alcohol intake: never Patient Tobacco Use Status: Former Tobacco user service: No Current occupational status: unemployed Current occupation: right hand dominant Physical Exam ED Vital Signs: Vital Signs - 24 hr 05/08/23 13:26 Temperature 97.9 F Pulse Rate 79 Respiratory Rate 20 Blood Pressure 138/74 Pulse Oximetry 99 Oxygen Delivery Method Room Air BMI result Body Mass Index 24.6 Const Other: The patient is awake and alert. She looks uncomfortable. HENMT Other: Face is symmetrical, mucous membranes moist Eyes Other: Pupils are round equal, no scleral icterus Neck Other: No JVD Resp Effort & Inspection: normal respiratory effort Auscultation: clear to auscultation bilaterally Cardio Rate: regular rate Rhythm: regular rhythm Heart sounds: S1 normal heart sound present and S2 normal heart sound present GI Other: The patient is tender in the epigastrium and in the right upper quadrant. The lower abdomen is very soft and nontender. Skin Other: The patient looks mildly sweaty. Neuro Other: The patient is awake, alert, appropriate, grossly neurologically intact. Extrem Other: No peripheral edema, no calf swelling or tenderness Course Course Course Narrative: RME: 43 yold female presents to the ED for epigastric lower chest pain ever since having gallbladder removal last week. Patient states shortness of breath due to pain. patient having EKG and labs drawn. Medications Administered Generic Name Dose Route Start Last Admin Trade Name Freq PRN Reason Stop Dose Admin Dextrose/Lactated Ringer's 1,000 mls @ 125 mls/hr 05/08/23 14:15 05/09/23 10:37 D5lr IVCONT 0 mls/hr .Q8H GRUPO Infusion Piperacillin Sod/Tazobactam 50 mls @ 100 mls/hr 05/08/23 17:15 05/09/23 05:45 Sod 3.375 gm/ Sodium Chloride IV Infused Q6H GRUPO Infusion Sodium Chloride 3 ml 05/08/23 16:00 05/09/23 07:07 0.9 % Sodium Chloride Flush 3 Ml Syringe IVFLUSH Not Given QSHIFT GRUPO Zolpidem Tartrate 5 mg 05/08/23 21:00 05/08/23 20:52 Zolpidem Tartrate 5 Mg Tablet PO 5 mg BEDTIME PRN Administration Insomnia Discontinued Medications Generic Name Dose Route Start Last Admin Trade Name Freq PRN Reason Stop Dose Admin Sodium Chloride 1,000 mls @ 999 mls/hr 05/08/23 13:30 05/08/23 14:40 Ns IV 05/08/23 14:30 Infused .Q1H1M GRUPO Infusion Acetaminophen 1,000 mg in 100 mls @ 400 mls/hr 05/08/23 14:15 05/09/23 08:15 Ofirmev IV 05/09/23 08:29 Infused Q6H GRUPO Infusion Morphine Sulfate 4 mg 05/08/23 13:24 05/08/23 13:38 Morphine Sulfate 4 Mg/Ml Cartridge IVPUSH 05/08/23 13:25 4 mg ONCE ONE Administration Protocol Ondansetron HCl 4 mg 05/08/23 13:24 05/08/23 13:38 Ondansetron Hcl 4 Mg/2 Ml Vial IVPUSH 05/08/23 13:25 4 mg ONCE ONE Administration Medical Decision Making Medical Decision Making [facility] Narrative: The patient is a 43-year-old woman who had a laparoscopic cholecystectomy 8 days ago. She was discharged from the hospital 6 days ago. She has had persistent epigastric pain similar to the pain she had prior to her surgery over the last several days. Her LFTs show a rise in her bilirubin, her transaminases, and her alk phos. This is suggestive for choledocholithiasis. An ultrasound was obtained. The preliminary result of the ultrasound is there is a ductal stone in the common bile duct. Dr. Rosado came to see the patient in the emergency room and will be admitting the patient to his service. The patient has received pain medications and IV fluids. The patient does not report any fevers at home and she is afebrile here. Her white count and differential are unremarkable. Although she seems to have choledocholithiasis I do not think she currently has cholangitis. Lab Data 05/09/23 05:39 05/08/23 12:22 Labs: Lab Results 05/08/23 Range/Units 12:22 WBC 7.4 (4.8-10.8) X10*3/uL RBC 4.59 (4.20-5.50) X10*6/uL Hgb 14.1 (12.0-16.0) g/dl Hct 42.5 (37.0-47.0) % MCV 92.6 (80.0-98.0) fL MCH 30.7 (27.0-33.0) pg MCHC 33.2 (31.0-35.0) g/dl RDW 13.4 (11.0-16.0) % Plt Count 317 (160-400) X10*3/uL MPV 10.3 (9.4-12.3) fL Immature Gran % (Auto) 0.8 H (0.0-0.4) % Neut % (Auto) 69.6 (45-73) % Lymph % (Auto) 17.6 L (20-40) % [place] % (Auto) 9.7 (2-11) % Eos % (Auto) 1.5 (0-4) % Baso % (Auto) 0.8 (0-2) % Lymph # (Auto) 1.3 (1.2-4.9) X10*3/uL [place] # (Auto) 0.7 (0.1-1.2) X10*3/uL Eos # (Auto) 0.1 (0.0-0.4) X10*3/uL Baso # (Auto) 0.1 (0.0-0.2) X10*3/uL Abs Immat Gran (auto) 0.06 H (0.00-0.03) X10*3/uL Absolute Neuts (auto) 5.1 (2.0-8.3) x10*3/uL Absolute Nucleated RBC 0.000 (0.0-0.012) X10*3/uL Nucleated RBC % (auto) 0.0 (0.0-0.2) /100WBC PT 11.9 (11.1-13.3) SEC INR 1.0 (0.9-1.1) APTT 31.9 (26.0-36.8) SEC Sodium 140 (135-145) mmol/L Potassium 4.2 (3.3-5.1) mmol/L Chloride 104 (96-108) mmol/L Carbon Dioxide 26 (22-29) mmol/L Anion Gap 14 (12-20) BUN 12 (9-16) mg/dL Creatinine 0.72 (0.5-1.4) mg/dL Estim Creat Clear Calc 91.0 Estimated GFR > 60 Random Glucose 131 H (60-115) mg/dL Calcium 10.1 (8.4-10.2) mg/dL Total Bilirubin 2.1 H (0.0-1.0) mg/dL AST 544 H (5-31) U/L ALT 867 H (0-31) U/L Alkaline Phosphatase 409 H (39-117) U/L Troponin I High Sens < 2.7 (<3.5-17.0) ng/L Total Protein 8.3 H (6.5-8.0) g/dL Albumin 4.6 (3.5-5.0) g/dL Lipase 50 (8-78) U/L Beta HCG, Quant < 2 mIU/mL Independent Interpretation I performed an independent interpretation of an: EKG Interpretation: EKG at 12:39 shows normal sinus rhythm at 88 beats per minute. No significant change from previous. An initial EKG had been done at 12:14 that showed a lot of changes from her prior EKG but this may be secondary to limb lead reversal. Discharge Plan Discharge Clinical Impression: Acute epigastric pain, Choledocholithiasis, Abnormal LFTs Patient Disposition: Admitted As Inpatient Interventions: Admission Worksheet (ED) Last Done: 05/08/23 15:51 Discharge Date/Time: 05/08/23 17:00
[2023-05-08 12:35] LABS: Prothrombin Time 11.9 SEC (11.1-13.3)
[2023-05-08 12:36] LABS: Basophils Absolute Auto 0.1 X10*3/uL (0.0-0.2); Basophils Percent Auto 0.8 % (0-2); Eosinophils Absolute Auto 0.1 X10*3/uL (0.0-0.4); Eosinophils Percent Auto 1.5 % (0-4); Hematocrit 42.5 % (37.0-47.0); Hemoglobin 14.1 g/dl (12.0-16.0); Imm Gran Abs Auto 0.06 X10*3/uL (0.00-0.03); Imm Gran Pct Auto 0.8 % (0.0-0.4); Lymphocytes Absolute Auto 1.3 X10*3/uL (1.2-4.9); Lymphocytes Percent Auto 17.6 % (20-40); Mean Corpuscular HGB Conc 33.2 g/dl (31.0-35.0); Mean Corpuscular Hemoglobin 30.7 pg (27.0-33.0); Mean Corpuscular Volume 92.6 fL (80.0-98.0); Mean Platelet Volume 10.3 fL (9.4-12.3); Monocytes Absolute Auto 0.7 X10*3/uL (0.1-1.2); Monocytes Percent Auto 9.7 % (2-11); Neutrophils Absolute Auto 5.1 x10*3/uL (2.0-8.3); Neutrophils Percent Auto 69.6 % (45-73); Platelet Count 317 X10*3/uL (160-400); Red Blood Count 4.59 X10*6/uL (4.20-5.50); Red Cell Distribution Width 13.4 % (11.0-16.0); White Blood Count 7.4 X10*3/uL (4.8-10.8)
[2023-05-08 12:38] LABS: Partial Thromboplastin Time 31.9 SEC (26.0-36.8)
--- NOTE | 2023-05-08 12:39 | ECG_ITS ---
Test Reason : abd pain Blood Pressure : / mmHG Vent. Rate : 088 BPM Atrial Rate : 088 BPM P-R Int : 148 ms QRS Dur : 082 ms QT Int : 332 ms P-R-T Axes : 080 080 012 degrees QTc Int : 401 ms Normal sinus rhythm Right atrial enlargement T wave abnormality, consider inferior ischemia Abnormal ECG When compared with ECG of 08-MAY-2023 12:14, QRS axis Shifted left Criteria for Anterolateral infarct are no longer Present Criteria for Inferior infarct are no longer Present Referred By: Ashu Key Electronically Signed By:HOWARD PIMENTEL MD
[2023-05-08 12:52] LABS: Alanine Aminotransferase 867 U/L (0-31); Albumin Level 4.6 g/dL (3.5-5.0); Alkaline Phosphatase 409 U/L (39-117); Anion Gap 14 (12-20); Aspartate Amino Transferase 544 U/L (5-31); Bilirubin Total 2.1 mg/dL (0.0-1.0); Blood Urea Nitrogen 12 mg/dL (9-16); Calcium 10.1 mg/dL (8.4-10.2); Carbon Dioxide 26 mmol/L (22-29); Chloride 104 mmol/L (96-108); Estimated Glomerular Filt Rate > 60; Glucose Random 131 mg/dL (60-115); Lipase 50 U/L (8-78); Potassium 4.2 mmol/L (3.3-5.1); Sodium 140 mmol/L (135-145); Total Protein 8.3 g/dL (6.5-8.0)
[2023-05-08 12:54] LABS: Troponin-I High Sensitivity < 2.7 ng/L (<3.5-17.0)
[2023-05-08 12:55] LABS: HCG Quantitative < 2 mIU/mL
[2023-05-08] MEDS: 0.9 % Sodium Chloride 1,000 ML 999 ML IV (13:38)
[2023-05-08] MEDS: ondansetron HCL 4 MG/2 ML VIAL IVPUSH (13:38)
[2023-05-08] MEDS: Morphine Sulfate 4 MG/ML CARTRIDGE IVPUSH (13:38)
--- NOTE | 2023-05-08 13:52 | PC.NURSE ---
Patient w/ recent GB removal surgery C/O 11/06 epigastric abd pain. IV fluids running, pain medication given per APR, currently getting abd US at bedside.
--- NOTE | 2023-05-08 14:11 | PM.HPGS ---
History of Present Illness History of Present Illness Date of Service: 05/08/23 Chief complaint: chest pain Narrative: Tatyana Hernandez is a 43 year old female with a previous history of epigastric abdominal pain after eating [employer], found to have acute cholecystitis due to cholelithiasis. She was admitted to the surgical service on 05/01/2023 and subsequently underwent a laparoscopic cholecystectomy at that time. Operative findings revealed multiple gallstones within the gallbladder. She underwent an uneventful laparoscopic cholecystectomy and was subsequently discharged home on 05/03/2023. Over the next several days she began to no increased abdominal pain in the epigastric region not associated with the incision. The symptoms seem to worsen with time and were associated with fever and chills. She subsequently returned to the emergency department this morning and was found to have markedly elevated liver functions. Subsequent ultrasound confirmed a common bile duct stone with dilatation of the common bile duct. She is admitted to the surgical service for further management of the common bile duct stone. Review of Systems Review of Systems: Yes all other systems are reviewed and are negative Gastrointestinal: Gastrointestinal: Reports abdominal pain and Reports nausea Genitourinary: Comments: Dark urine PMFSH Past Medical History Medical History (Updated 05/08/23 @ 14:05 by Ashu Key MD) Acute cholecystitis Surgical History Surgical History (Updated 05/07/23 @ 00:01 by Lalitha Cherry) S/P laparoscopic cholecystectomy (05/01/23) Hx of tubal ligation Hx of section Social History Social History Household Members: Spouse and Children Housing: Apartment Do you presently have visiting nurse or other home services: No Alcohol intake: never Patient Tobacco Use Status: Former Tobacco user Smoked in Last 30 Days: No Use of substances other than those prescribed or required for medical reasons: No Advance Directives: No Advance Directives Information Provided: No Patient : No service: No Current occupational status: unemployed Current occupation: right hand dominant Meds Allergies Allergy/AdvReac Type Severity Reaction Status Date / Time oxycodone Allergy Itching Verified 05/08/23 12:24 Active Medications: Current Medications Sodium Chloride (Ns) 1,000 mls @ 999 mls/hr IV .Q1H1M GRUPO Stop: 05/08/23 14:30 Last Admin: 05/08/23 13:38 Dose: 999 mls/hr Physical Exam Vital Signs: Vital Signs: Last Vital Signs Temp 97.9 F 05/08/23 13:26 Pulse 79 05/08/23 13:26 Resp 20 05/08/23 13:26 BP 138/74 05/08/23 13:26 Pulse Ox 99 05/08/23 13:26 O2 Del Method Room Air 05/08/23 13:26 BMI result Body Mass Index 24.6 Const: General: comfortable, no acute distress and alert Orientation/consciousness: patient oriented x3 Resp: Effort & Inspection: normal respiratory effort GI: Other: Trocar incisions clean, dry, and intact. Inspection: No distended Palpation (GI): Soft to palpation, Tenderness to palpation present (GI) in the epigastrum, no guarding and not rigid Skin: General skin exam: no rashes or lesions noted and no jaundice Neuro: General: patient oriented x3 and moves all extremities Results Results Labs: Short CBC 05/08/23 Range/Units 12:22 WBC 7.4 (4.8-10.8) X10*3/uL Hgb 14.1 (12.0-16.0) g/dl Hct 42.5 (37.0-47.0) % Plt Count 317 (160-400) X10*3/uL BMP 05/08/23 12:22 Sodium 140 Potassium 4.2 Chloride 104 Carbon Dioxide 26 BUN 12 Creatinine 0.72 Calcium 10.1 Liver Function 05/08/23 Range/Units 12:22 Total Bilirubin 2.1 H (0.0-1.0) mg/dL AST 544 H (5-31) U/L ALT 867 H (0-31) U/L Alkaline Phosphatase 409 H (39-117) U/L Albumin 4.6 (3.5-5.0) g/dL Assessment and Plan (1) Abnormal LFTs: Status: Acute (2) Choledocholithiasis: Status: Acute Plan 43-year-old female patient with a recent laparoscopic cholecystectomy on 05/01/2023 now readmitted with choledocholithiasis probably from retained cystic remnant stone. Patient will be admitted to the surgical service with gastroenterology consultation for probable ERCP and common bile duct stone removal. Patient will be kept NPO and on IV fluids. Quality Stroke Does the patient have a stroke diagnosis?: No VTE Prior VTE?: No VTE Risk Level:: Surgical - low VTE Device Contraindication: N/A - Device Ordered VTE Drug Contraindication: Treatment Not Indicated Procedures Date of Service Date of Service: 05/08/23
--- NOTE | 2023-05-08 14:35 | PHA.MEDREC ---
Pharmacy Consult ? Medication Reconciliation Pharmacy has completed the medication reconciliation. Confirmed medications with patient (and marking room supervisor) and through claim history. Patient reports that Oxycodone makes her itchy and Tramadol makes her very nauseous. She has not taken then since Monday.
[2023-05-08] MEDS: Acetaminophen 1,000 MG/100 ML PIGGYBACK 400 MG IV ×2 (14:50→20:15)
[2023-05-08] MEDS: Dextrose 5 % and Lactated Ring 1,000 ML 125 ML IVCONT ×2 (14:50→22:55)
[2023-05-08 16:39] LABS: Appearance Urine Clear; Color Urine Dark Yellow; Glucose Urine UA Negative (Negative); Leukocyte Esterase Urine Negative (Negative); Nitrite Urine Negative (Negative); Urine Blood Negative (Negative); Urine Ketones Trace mg/dL (Negative); Urine Protein Negative (Neg-Trace)
--- NOTE | 2023-05-08 16:55 | PM.EVENT ---
Event Note Date of Service: 05/08/23 Event Note: GI Consult-History from patient with a medical staff services coordinator, as well as with her helping to interpret, and from the EMR. Imp: Probable choledocholithiasis given the clinical history, bump in LFT's, and her current U/S report. She appears comfortable at this time. She has a benign abdomen and does not appear toxic . Rec: MRCP today or by AM. Probable ERCP tomorrow afternoon with me or Dr. Estrella. Full consent has been obtained for this, including risks of bleeding, perforation, cholangitis, and pancreatitis. Follow up labs. IV antibiotics in the meantime. D/W patient and her in detail. They are comfortable with this plan. Thanks Time Spent With Patient Time: Total time managing care of this patient today ____ minutes.
[2023-05-08] MEDS: Piperacillin Sodium/Tazobactam 3.375 GM in 0.9 % Sodium Chloride 50 ML IV ×2 (17:55→22:49)
[2023-05-08] MEDS: 0.9 % Sodium Chloride Flush 3 ML SYRINGE IVFLUSH (17:56)
--- NOTE | 2023-05-08 18:21 | MHC.SHP ---
Pre-Procedural Eval Section A - 24 Hr Update-Section A only Date of Service: 05/09/23 The patient is an INPATIENT: Yes The patient has been examined within 24 hours of the surgical procedure. The History & Physical has been completed within 30 days and I have reviewed it.: Yes Section B - Complete if H&P > 30 days Chief Complaint: choledocholithiasis following laparoscopic cholecy Allergies: Allergies Allergy/AdvReac Type Severity Reaction Status Date / Time oxycodone Allergy Itching Verified 05/08/23 12:24 Plan I have reviewed the history and physical and performed a pertinent physical examination on my patient. No changes have occurred unless specified. Time Spent With Patient Time: Total time managing care of this patient today ____ minutes.
[2023-05-08] MEDS: Zolpidem Tartrate 5 MG TABLET PO (20:52)
[2023-05-09] VITALS (12 sets, daily range): BP systolic 112–140; BP diastolic 58–81; PULSE 64–85; RESP 12–20; TEMP 36.1–36.8; O2SAT 98–100
[2023-05-09] MEDS: Acetaminophen 1,000 MG/100 ML PIGGYBACK 400 MG IV ×2 (01:59→07:56)
--- NOTE | 2023-05-09 02:17 | CONS_ITS ---
DATE OF SERVICE: 05/08/2023 HISTORY OF PRESENT ILLNESS: This has been obtained from the patient with a medical receptionist assistant present, as well as with her who helped with interpreting and from the medical record. The patient is a 43-year-old female who underwent a laparoscopic cholecystectomy last week with Dr. Rosado for symptomatic gallstones. Since that time, she does continue to have some intermittent epigastric and right upper quadrant pain, particularly on a postprandial basis. This was associated with some nausea. Due to the persistent problems, she came to the ER for evaluation. She underwent abdominal ultrasound describing a dilated common bile duct of 1.3 cm with some intrahepatic bile duct dilatation. A common duct stone was not definitively visualized, but this was felt to be the most likely cause of the abnormalities. There was no sign of any intraabdominal fluid. Her abdominal ultrasound from last week described a bile duct of only 7 mm. In the ER, she has been treated with analgesics with good relief. Vital signs have been stable and she has been afebrile. At home, she was not noted to be febrile. She did not notice any jaundice. She had no vomiting. She denies any diarrhea, hematochezia, or melena. In general, prior to the onset of her gallbladder symptoms, she enjoyed a good appetite and denied any chronic heartburn or dysphagia. MEDICATIONS: At home, ibuprofen p.r.n. PAST MEDICAL HISTORY: Cholecystectomy last week for symptomatic gallstones, tubal ligation. She denies any medical problems such as heart disease, diabetes, asthma, stroke, or kidney disease. SOCIAL HISTORY: She is . She does not smoke nor use any significant amounts of alcohol. FAMILY HISTORY: Multiple relatives have had their gallbladder removed. REVIEW OF SYSTEMS: CONSTITUTIONAL: She has not been feeling particularly well due to the onset of her pain. SKIN: Without rash. No pruritus. CARDIAC: No chest pain. PULMONARY: No coughing or hemoptysis. GI: As above. URINARY: No dysuria. No hematuria. PHYSICAL EXAMINATION: GENERAL: On exam, the patient is a pleasant, alert, comfortable-appearing female. VITAL SIGNS: Have been stable and she is afebrile. SKIN: Warm and dry. Nonjaundiced. Anicteric sclerae. Moist mucous membranes. NECK: Supple. CHEST: Clear. CARDIAC: S1, S2. ABDOMEN: Soft, nondistended. Normal bowel sounds and nontender at the present time. There is no mass or rebound. EXTREMITIES: Without edema. LABORATORY DATA: Normal CBC. PT 11.9 with INR 1.0. Normal electrolytes and renal function. Her AST was 91 last week and today is 544. Her ALT today is 867. Alkaline phosphatase was normal last week and today is 409. Total bilirubin was normal last week and today is 2.1. Lipase is 50. test is negative. IMPRESSION: Given the patient's clinical history of ongoing upper abdominal pain, worsening of her LFTs, and further dilatation of her intrahepatic and extrahepatic biliary tree, this certainly speaks for a probable common bile duct stone. I would recommend MRCP today for further definitive evaluation. However, assuming the MRCP does confirm the presence of a common duct stone, I would recommend ERCP by either myself or Dr. Estrella. Full consent has been obtained from her and her for the procedure, including risks of bleeding, perforation, cholangitis, and pancreatitis. In the meantime, I will continue supportive care with antibiotics and IV fluids. Followup laboratories have been ordered for the morning. This has been discussed with the patient and her in detail and they are both comfortable with the plan. Thank you for the consultation. MD PRATIBHA Gonsalves/MELIA / [id number] MTDD
[2023-05-09] MEDS: Piperacillin Sodium/Tazobactam 3.375 GM in 0.9 % Sodium Chloride 50 ML IV ×2 (05:11→16:57)
[2023-05-09 06:48] LABS: MANUAL DIFF FLAG NO
[2023-05-09 07:01] LABS: Basophils Absolute Auto 0.1 X10*3/uL (0.0-0.2); Basophils Percent Auto 0.9 % (0-2); Eosinophils Absolute Auto 0.2 X10*3/uL (0.0-0.4); Eosinophils Percent Auto 2.7 % (0-4); Hematocrit 35.1 % (37.0-47.0); Hemoglobin 11.5 g/dl (12.0-16.0); Imm Gran Abs Auto 0.04 X10*3/uL (0.00-0.03); Imm Gran Pct Auto 0.7 % (0.0-0.4); Lymphocytes Absolute Auto 1.4 X10*3/uL (1.2-4.9); Lymphocytes Percent Auto 25.6 % (20-40); Mean Corpuscular HGB Conc 32.8 g/dl (31.0-35.0); Mean Corpuscular Volume 91.6 fL (80.0-98.0); Mean Platelet Volume 11.1 fL (9.4-12.3); Monocytes Absolute Auto 0.6 X10*3/uL (0.1-1.2); Neutrophils Absolute Auto 3.3 x10*3/uL (2.0-8.3); Neutrophils Percent Auto 59.1 % (45-73); Platelet Count 270 X10*3/uL (160-400); Red Blood Count 3.83 X10*6/uL (4.20-5.50); Red Cell Distribution Width 13.6 % (11.0-16.0); White Blood Count 5.6 X10*3/uL (4.8-10.8)
[2023-05-09 07:17] LABS: Alanine Aminotransferase 623 U/L (0-31); Albumin Level 3.5 g/dL (3.5-5.0); Alkaline Phosphatase 313 U/L (39-117); Aspartate Amino Transferase 321 U/L (5-31); Bilirubin Direct 0.8 mg/dL (0.0-0.5); Bilirubin Total 1.4 mg/dL (0.0-1.0); Total Protein 6.3 g/dL (6.5-8.0)
--- NOTE | 2023-05-09 07:42 | P.PNGS_ITS ---
Subjective Subjective Date of Service: 05/09/23 Interval history: Feels somewhat improved this morning, no nausea or vomiting. Underwent MRI last evening. Physical Exam 2 Vital Signs: Vital Signs: Last Vital Signs Temp 97.8 F 05/09/23 07:27 Pulse 78 05/09/23 07:27 Resp 18 05/09/23 07:27 BP 119/64 05/09/23 07:27 Pulse Ox 98 05/09/23 07:27 O2 Del Method Room Air 05/09/23 07:27 BMI result Body Mass Index 24.6 Const: General: comfortable and no acute distress Resp: Effort & Inspection: normal respiratory effort GI: Palpation (GI): Soft to palpation, Tenderness to palpation present (GI) in the epigastrum, no guarding and not rigid Extrem: General: Yes no clubbing, cyanosis or edema Objective Data Active Medications Hydromorphone HCl (Hydromorphone Hcl 0.5 Mg/0.5 Ml Syringe) 0.5 mg IVPUSH Q3H PRN; Protocol PRN Reason: Pain, Severe (Pain Scale 7-10) Acetaminophen (Ofirmev) 1,000 mg in 100 mls @ 400 mls/hr IV Q6H [facility] Stop: 05/09/23 08:29 Last Infusion: 05/09/23 02:29 Dose: Infused Documented By: SOFYA Dextrose/Lactated Ringer's (D5lr) 1,000 mls @ 125 mls/hr IVCONT .Q8H [facility] Last Admin: 05/09/23 06:18 Dose: Not Given Documented By: SOFYA Non-Admin Reason: IV Running Piperacillin Sod/Tazobactam (Sod 3.375 gm/ Sodium Chloride) 50 mls @ 100 mls/hr IV Q6H [facility] Last Infusion: 05/09/23 05:45 Dose: Infused Documented By: SOFYA Indomethacin (Indomethacin 50 Mg Supp.Rect) 100 mg PA ONCE [facility] Ondansetron HCl (Ondansetron Hcl 4 Mg/2 Ml Vial) 4 mg IVPUSH QID PRN PRN Reason: Nausea Sodium Chloride (0.9 % Sodium Chloride Flush 3 Ml Syringe) 3 ml IVFLUSH QSHIFT [facility] Last Admin: 05/09/23 07:07 Dose: Not Given Documented By: ALONZO Non-Admin Reason: IV Running Zolpidem Tartrate (Zolpidem Tartrate 5 Mg Tablet) 5 mg PO BEDTIME PRN PRN Reason: Insomnia Last Admin: 05/08/23 20:52 Dose: 5 mg Documented By: SOFYA Labs 05/09/23 05:39 05/08/23 12:22 Labs: Laboratory Results - last 24 hr 05/08/23 05/08/23 05/09/23 12:22 16:29 05:39 MCV 92.6 91.6 MCH 30.7 30.0 MCHC 33.2 32.8 RDW 13.4 13.6 Plt Count 317 270 MPV 10.3 11.1 Immature Gran % (Auto) 0.8 H 0.7 H Neut % (Auto) 69.6 59.1 Lymph % (Auto) 17.[address] [place] % (Auto) 9.7 11.0 Eos % (Auto) 1.5 2.7 Baso % (Auto) 0.8 0.9 Lymph # (Auto) 1.[address] [place] # (Auto) 0.7 0.6 Eos # (Auto) 0.1 0.2 Baso # (Auto) 0.1 0.1 Abs Immat Gran (auto) 0.06 H 0.04 H Absolute Neuts (auto) 5.1 3.3 Absolute Nucleated RBC 0.000 0.000 Nucleated RBC % (auto) 0.0 0.0 PT 11.9 INR 1.0 APTT 31.9 Anion Gap 14 Estim Creat Clear Calc 91.0 Estimated GFR > 60 Random Glucose 131 H Calcium 10.1 Total Bilirubin 2.1 H 1.4 H Direct Bilirubin 0.8 H AST 544 H 321 H ALT 867 H 623 H Alkaline Phosphatase 409 H 313 H Troponin I High Sens < 2.7 Total Protein 8.3 H 6.3 L Albumin 4.6 3.5 Lipase 50 Beta HCG, Quant < 2 Urine Color Dark Yellow Urine Appearance Clear Urine pH 7.0 Ur Specific [place] 1.020 Urine Protein Negative Urine Glucose (UA) Negative Urine Ketones Trace Urine Blood Negative Urine Nitrite Negative Ur Leukocyte Esterase Negative Procedures Date of Service Date of Service: 05/09/23 Progress Note: A&P Assessment and plan (1) Choledocholithiasis: Status: Acute (2) Abnormal LFTs: Status: Acute Plan 43-year-old female patient status post laparoscopic cholecystectomy 1 week ago now with choledocholithiasis. Reviewed MRI although official reading not available there does appear to be several common bile duct stones in the distal common bile duct. Appreciate Dr. Brown's input. Possible ERCP today. We will keep NPO. Time Spent With Patient Time: Total time managing care of this patient today ____ minutes. Quality Stroke Does the patient have a stroke diagnosis?: No VTE Prior VTE?: No VTE Risk Level:: Surgical - low VTE Device Contraindication: N/A - Device Ordered VTE Drug Contraindication: Treatment Not Indicated
[2023-05-09] MEDS: Dextrose 5 % and Lactated Ring 1,000 ML 125 ML IVCONT ×2 (07:57→16:57)
--- NOTE | 2023-05-09 09:56 | P.CONAN_ITS ---
HPI - Anesthesia Eval Consult details Narrative: 43 yo female patient for ERCP. S/p Laparoscopic Cholcystectomy 05/01/23. MRCP showed choledocholithiasis PMFSH Active Problems Active Problems: All Active Problems (Updated 05/09/23 @ 09:56 by Demetrice Bran MD) Abnormal LFTs (Acute) Choledocholithiasis (Acute) Acute epigastric pain (Acute) Fracture of thumb, right open (Acute) Anemia Past Medical History Medical History Acute cholecystitis Family History Family history of problems with anesthesia: No Surgical History Surgical History S/P laparoscopic cholecystectomy (05/01/23) Hx of tubal ligation Hx of section History of Problems with Anesthesia: No (Some soreness of throat after Lap brian) Social History Social History Household Members: Spouse and Children Housing: Apartment Do you presently have visiting nurse or other home services: No Alcohol intake: never Patient Tobacco Use Status: Former Tobacco user service: No Current occupational status: unemployed Current occupation: right hand dominant Meds Allergies Allergy/AdvReac Type Severity Reaction Status Date / Time oxycodone Allergy Itching Verified 05/08/23 12:24 Active Medications: Current Medications Hydromorphone HCl (Hydromorphone Hcl 0.5 Mg/0.5 Ml Syringe) 0.5 mg IVPUSH Q3H PRN; Protocol PRN Reason: Pain, Severe (Pain Scale 7-10) Dextrose/Lactated Ringer's (D5lr) 1,000 mls @ 125 mls/hr IVCONT .Q8H [facility] Last Admin: 05/09/23 07:57 Dose: 125 mls/hr Piperacillin Sod/Tazobactam (Sod 3.375 gm/ Sodium Chloride) 50 mls @ 100 mls/hr IV Q6H [facility] Last Infusion: 05/09/23 05:45 Dose: Infused Indomethacin (Indomethacin 50 Mg Supp.Rect) 100 mg DC ONCE [facility] Ondansetron HCl (Ondansetron Hcl 4 Mg/2 Ml Vial) 4 mg IVPUSH QID PRN PRN Reason: Nausea Sodium Chloride (0.9 % Sodium Chloride Flush 3 Ml Syringe) 3 ml IVFLUSH QSHIFT [facility] Last Admin: 05/09/23 07:07 Dose: Not Given Zolpidem Tartrate (Zolpidem Tartrate 5 Mg Tablet) 5 mg PO BEDTIME PRN PRN Reason: Insomnia Last Admin: 05/08/23 20:52 Dose: 5 mg Exam Height,Weight and Vital Signs: Height 5 ft 3 in Weight 63 kg Last Vital Signs Temp 97.8 F 05/09/23 07:27 Pulse 78 05/09/23 07:27 Resp 18 05/09/23 07:27 BP 119/64 05/09/23 07:27 Pulse Ox 98 05/09/23 07:27 O2 Del Method Room Air 05/09/23 07:27 Vital Signs Temp Pulse Resp BP Pulse Ox O2 Del Method 05/09/23 10:23 97 F 76 20 136/74 98 Room Air 05/09/23 07:27 97.8 F 78 18 119/64 98 Room Air 05/09/23 03:03 97.5 F 77 16 117/65 99 Room Air 05/08/23 23:58 98.5 F 69 16 107/60 99 Room Air 05/08/23 18:51 97.8 F 68 18 118/57 L 98 Room Air 05/08/23 17:37 98.3 F 70 15 126/60 96 Room Air 05/08/23 16:01 98.2 F 75 13 116/68 98 Room Air 05/08/23 14:53 65 16 99/48 L 97 Room Air 05/08/23 13:26 97.9 F 79 20 138/74 99 Room Air Pertinent Lab Results Pertinent Lab Results: Laboratory Tests 05/08/23 05/08/23 05/09/23 12:22 16:29 05:39 WBC 7.4 5.6 RBC 4.59 3.83 L Hgb 14.1 11.5 L Hct 42.5 35.1 L MCV 92.6 91.6 MCH 30.7 30.0 MCHC 33.2 32.8 RDW 13.4 13.6 Plt Count 317 270 MPV 10.3 11.1 Immature Gran % (Auto) 0.8 H 0.7 H Neut % (Auto) 69.6 59.1 Lymph % (Auto) 17.6 L 25.6 [place] % (Auto) 9.7 11.0 Eos % (Auto) 1.5 2.7 Baso % (Auto) 0.8 0.9 Lymph # (Auto) 1.3 1.4 [place] # (Auto) 0.7 0.6 Eos # (Auto) 0.1 0.2 Baso # (Auto) 0.1 0.1 Abs Immat Gran (auto) 0.06 H 0.04 H Absolute Neuts (auto) 5.1 3.3 Absolute Nucleated RBC 0.000 0.000 Nucleated RBC % (auto) 0.0 0.0 PT 11.9 INR 1.0 APTT 31.9 Sodium 140 Potassium 4.2 Chloride 104 Carbon Dioxide 26 Anion Gap 14 BUN 12 Creatinine 0.72 Estim Creat Clear Calc 91.0 Estimated GFR > 60 Random Glucose 131 H Calcium 10.1 Total Bilirubin 2.1 H 1.4 H Direct Bilirubin 0.8 H AST 544 H 321 H ALT 867 H 623 H Alkaline Phosphatase 409 H 313 H Troponin I High Sens < 2.7 Total Protein 8.3 H 6.3 L Albumin 4.6 3.5 Lipase 50 Beta HCG, Quant < 2 Urine Color Dark Yellow Urine Appearance Clear Urine pH 7.0 Ur Specific [place] 1.020 Urine Protein Negative Urine Glucose (UA) Negative Urine Ketones Trace Urine Blood Negative Urine Nitrite Negative Ur Leukocyte Esterase Negative Airway Mallampati Class: II TM Dist: >3cm Neck ROM: Full Loose/Missing/Broken Teeth: Yes (Missing molars. Denies broken or loose teeth) Heart: RRR Lungs: CTAB Assessment and Plan Assessment Anesthesia Assessment: Anesthesia Plan Discussed and Chart Reviewed Final Anesthetic Review Family History of Problems with Anesthesia: No History of Problems with Anesthesia: No (Some soreness of throat after Lap brian) NPO: Yes ASA Class: II and Emergency Final Preanesthetic Review: No Changes in Pt Med Stat, Meds/Allgs Chart Reviewed, Consent Obtained/Reviewed and Anes Risks/Benef Reviewed Patient Risk: Low Procedure Risk: Low Assessment/Block/Sedation in SS: Assess/Block/Sedation-SS Anesthetic Plan Anesthetic Plan: GA Disposition: Standard PACU
--- NOTE | 2023-05-09 13:09 | PM.EVENT ---
Event Note Date of Service: 05/09/23 Event Note: ERCP note dictated 6mm cbd stone and 1 fragment extracted with balloon after sphincterotomy. good post procedure drainage. rec: advance diet dc when stable Time Spent With Patient Time: Total time managing care of this patient today ____ minutes.
--- NOTE | 2023-05-09 13:44 | OP_ITS ---
DATE OF SERVICE: 05/09/2023 SURGEON: Cr Estrella MD PREOPERATIVE DIAGNOSIS: POSTOPERATIVE DIAGNOSIS: PROCEDURE PERFORMED: ERCP with sphincterotomy and extraction of common bile duct stones. ESTIMATED BLOOD LOSS: COMPLICATIONS: ANESTHESIA: General anesthesia. ASSISTANTS: SPECIMENS: DESCRIPTION OF PROCEDURE: A history and physical was performed. The risks and benefits of the procedure were explained to the patient. Informed consent was obtained. The patient was placed in the prone position with a wedge into the right shoulder. The Olympus therapeutic duodenoscope was introduced into the esophagus, stomach, and duodenum. Examination was performed. The scope was removed. She tolerated the procedure well, was returned to recovery area in stable condition. FINDINGS: Endoscopy: Limited examination of the esophagus, stomach, and duodenum was within normal limits. The major papilla was identified and drained clear yellow bile. A common bile duct cannulation was obtained with a guidewire and a sphincterotome. Cholangiography showed at least 1 filling defect in distal bile duct consistent with her history of stones. A sphincterotomy was performed to approximately 8 mm and multiple balloon sweeps of the common bile duct produced one 6 mm stone and fragments. There was no residual filling defect suggestive of any retained stones after the common bile duct was swept clear. No pancreatogram was attempted, however, the pancreatic duct was seen to fill on the cholangiography images. These limited views appeared normal. IMPRESSION: Common bile duct stones. RECOMMENDATION: Follow up as needed. MD LOUIE Sequeira/NERYL / [phone] MTDD
--- NOTE | 2023-05-09 14:45 | MHC.CM.PN ---
pt lives with is independent will not need servies when dcd
[2023-05-09] MEDS: 0.9 % Sodium Chloride Flush 3 ML SYRINGE IVFLUSH (17:00)
[2023-05-10] MEDS: Piperacillin Sodium/Tazobactam 3.375 GM in 0.9 % Sodium Chloride 50 ML IV ×2 (00:14→04:47)
[2023-05-10] MEDS: Dextrose 5 % and Lactated Ring 1,000 ML 125 ML IVCONT (00:59)
[2023-05-10 03:16] VITALS: BP 117/62; PULSE 74; RESP 18; TEMP 36.6; O2SAT 99
[2023-05-10 05:51] LABS: Hematocrit 37.9 % (37.0-47.0); Hemoglobin 12.7 g/dl (12.0-16.0); Mean Corpuscular HGB Conc 33.5 g/dl (31.0-35.0); Mean Corpuscular Hemoglobin 30.5 pg (27.0-33.0); Mean Corpuscular Volume 91.1 fL (80.0-98.0); Mean Platelet Volume 10.6 fL (9.4-12.3); Platelet Count 324 X10*3/uL (160-400); Red Blood Count 4.16 X10*6/uL (4.20-5.50); Red Cell Distribution Width 13.2 % (11.0-16.0); White Blood Count 11.6 X10*3/uL (4.8-10.8)
[2023-05-10 06:01] LABS: Alanine Aminotransferase 524 U/L (0-31); Albumin Level 4.2 g/dL (3.5-5.0); Alkaline Phosphatase 306 U/L (39-117); Aspartate Amino Transferase 163 U/L (5-31); Bilirubin Direct 0.4 mg/dL (0.0-0.5); Bilirubin Total 0.9 mg/dL (0.0-1.0); Total Protein 7.5 g/dL (6.5-8.0)
[2023-05-10 07:28] VITALS: BP 108/60; PULSE 68; RESP 18; TEMP 36.6; O2SAT 98
--- NOTE | 2023-05-10 08:33 | PM.PNGS ---
Subjective Subjective Date of Service: 05/10/23 <Анна Lara PA-C - Last Filed: 05/10/23 08:36> 05/10/23 <Francisco Rosado MD - Last Filed: 05/10/23 09:32> Interval history: Underwent ERCP yesterday. Feels better this morning, denies abd pain. Tolerating solid diet last night and this morning. OOB and ambulating without difficulty. Wants to go home. Reports last BM monday and was hard. <Анна Lara PA-C - Last Filed: 05/10/23 08:36> Physical Exam Vital Signs: Vital Signs: Last Vital Signs Temp 97.8 F 05/10/23 07:28 Pulse 68 05/10/23 07:28 Resp 18 05/10/23 07:28 BP 108/60 05/10/23 07:28 Pulse Ox 98 05/10/23 07:28 O2 Del Method Room Air 05/10/23 07:28 O2 Flow Rate 2 05/09/23 13:40 BMI result Body Mass Index 24.6 <Анна Lara PA-C - Last Filed: 05/10/23 08:36> Const: General: comfortable, no acute distress and alert <MAGDY Kaminski Last Filed: 05/10/23 08:36> Orientation/consciousness: patient oriented x3 <Анна Lara PA-C - Last Filed: 05/10/23 08:36> Resp: Effort & Inspection: normal respiratory effort <MAGDY Kaminski Last Filed: 05/10/23 08:36> GI: Inspection: Yes incision (clean, healing well ) <MAGDY Kaminski Last Filed: 05/10/23 08:36> Palpation (GI): Soft to palpation, Tenderness to palpation present (GI) (very mild RUQ tenderness to deep palpation), no guarding and not rigid <MAGDY Kaminski Last Filed: 05/10/23 08:36> Skin: General skin exam: no rashes or lesions noted and no jaundice <MAGDY Kaminski Last Filed: 05/10/23 08:36> Neuro: General: patient oriented x3 and moves all extremities <Анна Lara PA-C - Last Filed: 05/10/23 08:36> Objective Data Active Medications Fentanyl (Fentanyl Citrate/Pf 100 Mcg/2 Ml Vial) 25 mcg IVPUSH Q5M PRN; Protocol PRN Reason: Pain, Moderate(Pain Scale 4-6) Hydromorphone HCl (Hydromorphone Hcl 0.5 Mg/0.5 Ml Syringe) 0.5 mg IVPUSH Q3H PRN; Protocol PRN Reason: Pain, Severe (Pain Scale 7-10) Dextrose/Lactated Ringer's (D5lr) 1,000 mls @ 125 mls/hr IVCONT .Q8H [facility] Last Admin: 05/10/23 00:59 Dose: 125 mls/hr Documented By: HARRY Piperacillin Sod/Tazobactam (Sod 3.375 gm/ Sodium Chloride) 50 mls @ 100 mls/hr IV Q6H [facility] Last Infusion: 05/10/23 05:39 Dose: Infused Documented By: HARRY Lactated Ringer's (Lr) 1,000 mls @ 100 mls/hr IVCONT .Q10H [facility] Last Admin: 05/10/23 07:09 Dose: Not Given Documented By: PRINCESS Non-Admin Reason: Medication Discontinued Promethazine HCl 6.25 mg/ (Sodium Chloride) 50.25 mls @ 201 mls/hr IV ONCE PRN PRN Reason: Nausea and Vomiting Indomethacin (Indomethacin 50 Mg Supp.Rect) 100 mg ME ONCE [facility] Ondansetron HCl (Ondansetron Hcl 4 Mg/2 Ml Vial) 4 mg IVPUSH QID PRN PRN Reason: Nausea Ondansetron HCl (Ondansetron Hcl 4 Mg/2 Ml Vial) 4 mg IVPUSH ONCE PRN PRN Reason: Nausea and Vomiting Sodium Chloride (0.9 % Sodium Chloride Flush 3 Ml Syringe) 3 ml IVFLUSH QSHIFT [facility] Last Admin: 05/10/23 07:09 Dose: Not Given Documented By: PRINCESS Non-Admin Reason: IV Running Zolpidem Tartrate (Zolpidem Tartrate 5 Mg Tablet) 5 mg PO BEDTIME PRN PRN Reason: Insomnia Last Admin: 05/08/23 20:52 Dose: 5 mg Documented By: SOFYA <Анна Lara PA-C - Last Filed: 05/10/23 08:36> Labs CBC & Chem 7: 05/10/23 05:05 05/08/23 12:22 <Анна Lara PA-C - Last Filed: 05/10/23 08:36> Labs: Laboratory Results - last 24 hr 05/10/23 05:05 MCV 91.1 MCH 30.5 MCHC 33.5 RDW 13.2 Plt Count 324 MPV 10.6 Absolute Nucleated RBC 0.000 Nucleated RBC % (auto) 0.0 Total Bilirubin 0.9 Direct Bilirubin 0.4 AST 163 H ALT 524 H Alkaline Phosphatase 306 H Total Protein 7.5 Albumin 4.2 <Анна Lara PA-C - Last Filed: 05/10/23 08:36> Procedures Date of Service Date of Service: 05/10/23 <Анна Lara PA-C - Last Filed: 05/10/23 08:36> 05/10/23 <Francisco Rosado MD - Last Filed: 05/10/23 09:32> Progress Note: A&P Assessment and plan (1) Choledocholithiasis: Status: Acute <Анна Lara PA-C - Last Filed: 05/10/23 08:36> Assessment and Plan: POD #1 s/p ERCP, stone extraction yesterday. Feels improved today with no abdominal pain and tolerating solid diet. VSS. Abd exam benign. Bilirubin has normalized. Stable for dc to home today. Can f/u in office in 1-2 weeks. Will dc on stool softener. Patient comfortable with plan. <Анна Lara PA-C - Last Filed: 05/10/23 08:36> Time Spent With Patient Time: Total time managing care of this patient today ____ minutes. <Анна Lara PA-C - Last Filed: 05/10/23 08:36> Quality Stroke Does the patient have a stroke diagnosis?: No <Анна Lara PA-C - Last Filed: 05/10/23 08:36> VTE Prior VTE?: No <Анна Lara PA-C - Last Filed: 05/10/23 08:36> VTE Risk Level:: Surgical - low <Анна Lara PA-C - Last Filed: 05/10/23 08:36> VTE Device Contraindication: N/A - Device Ordered <Анна Lara PA-C - Last Filed: 05/10/23 08:36> VTE Drug Contraindication: Treatment Not Indicated <Анна Lara PA-C - Last Filed: 05/10/23 08:36>
--- NOTE | 2023-05-10 08:35 | P.PNGI_ITS ---
Subjective Subjective Date of Service: 05/10/23 Interval History: tolerating diet sore throat following procedure Critical Care Time (minutes): 0 Physical Exam 2 Vital Signs: Vital Signs: Last Vital Signs Temp 97.8 F 05/10/23 07:28 Pulse 68 05/10/23 07:28 Resp 18 05/10/23 07:28 BP 108/60 05/10/23 07:28 Pulse Ox 98 05/10/23 07:28 O2 Del Method Room Air 05/10/23 07:28 O2 Flow Rate 2 05/09/23 13:40 BMI result Body Mass Index 24.6 GI: Other: abdomen is soft and nontender Objective Data Labs 05/10/23 05:05 05/08/23 12:22 Labs: Laboratory Results - last 24 hr 05/10/23 05:05 WBC 11.6 H RBC 4.16 L Hgb 12.7 Hct 37.9 MCV 91.1 MCH 30.5 MCHC 33.5 RDW 13.2 Plt Count 324 MPV 10.6 Absolute Nucleated RBC 0.000 Nucleated RBC % (auto) 0.0 Total Bilirubin 0.9 Direct Bilirubin 0.4 AST 163 H ALT 524 H Alkaline Phosphatase 306 H Total Protein 7.5 Albumin 4.2 Procedures Date of Service Date of Service: 05/10/23 Progress Note: A&P Assessment and plan (1) Choledocholithiasis: Status: Acute Assessment and Plan: doing well ok for discharge f/u prn Time Spent With Patient Time: Total time managing care of this patient today ____ minutes. Quality Stroke Does the patient have a stroke diagnosis?: No VTE Prior VTE?: No VTE Risk Level:: Surgical - low VTE Device Contraindication: N/A - Device Ordered VTE Drug Contraindication: Treatment Not Indicated
--- NOTE | 2023-05-10 08:41 | MHC.CM.PN ---
pt dcd home no servies
--- NOTE | 2023-05-10 08:58 | HO.POSTANES ---
Post Anesthesia Evaluation Post Anesthesia Evaluation Date of Service: 05/10/23 Vital Signs: Vital Signs Temp Pulse Resp BP Pulse Ox O2 Del Method 05/10/23 07:28 97.8 F 68 18 108/60 98 Room Air 05/10/23 03:16 97.8 F 74 18 117/62 99 Room Air 05/09/23 23:16 98.3 F 79 16 112/60 98 Room Air Anesthesia: General Endotracheal-GETA Mental Status: Awake Pain Control: Satisfactory Nausea/Vomiting: None Hydration: Adequate Anesthesia-Related Issues: No Anes. Related Issues
--- NOTE | 2023-05-10 09:16 | PM.DS ---
DS: Providers Provider Date of Service: 05/10/23 <Анна Lara PA-C - Last Filed: 05/10/23 09:32> Date of admission: 05/08/23 14:08 <Анна Lara PA-C - Last Filed: 05/10/23 09:32> Date of discharge: 05/10/23 <Анна Lara PA-C - Last Filed: 05/10/23 09:32> Primary care physician: Reji Galvin MD <Анна Lara PA-C - Last Filed: 05/10/23 09:32> Attending physician on admission: Francisco Rosado <Анна Lara PA-C - Last Filed: 05/10/23 09:32> Consults: 05/08/23 14:04 Consult to Gastroenterology Routine Consulting Provider: Bernardo Brown Reason for consultation: Choledocholithiasis following laparoscopic cholecystectomy <MAGDY Kaminski Last Filed: 05/10/23 09:32> Attending physician on discharge: Francisco Rosado <Анна Lara PA-C - Last Filed: 05/10/23 09:32> DS: Diagnosis Discharge Diagnosis (1) Choledocholithiasis: Status: Acute <MAGDY Kaminski Filed: 05/10/23 09:32> DS: Summary Hospital Course Hospital Course: HPI AT ADMISSION: Tatyana Hernandez is a 43 year old female with a previous history of epigastric abdominal pain after eating [employer], found to have acute cholecystitis due to cholelithiasis. She was admitted to the surgical service on 05/01/2023 and subsequently underwent a laparoscopic cholecystectomy at that time. Operative findings revealed multiple gallstones within the gallbladder. She underwent an uneventful laparoscopic cholecystectomy and was subsequently discharged home on 05/03/2023. Over the next several days she began to no increased abdominal pain in the epigastric region not associated with the incision. The symptoms seem to worsen with time and were associated with fever and chills. She subsequently returned to the emergency department this morning and was found to have markedly elevated liver functions. Subsequent ultrasound confirmed a common bile duct stone with dilatation of the common bile duct. HOSPITAL COURSE: She was admitted to the surgical service for further management of the common bile duct stone. Gastroenterology consultation was obtained for probable ERCP and common bile duct stone removal. Patient was kept NPO and on IV fluids. She was seen by GI and ERCP with stone extraction, sphincterotomy was performed by Dr. Estrella on 05/09/23. A 6mm cbd stone and 1 fragment extracted. She tolerated the procedure well. Her bilirubin normalized and transaminases downtrended post procedure. She was tolerating a solid diet with resolution of the epigastric pain. Her abdominal exam was benign. She felt well and ready for discharge. She was discharged to home on 05/10/23 in stable condition. She is to follow up in the office in 1-2 weeks. <Анна Lara PA-C - Last Filed: 05/10/23 09:32> Status at Discharge Functional status at discharge: independent ambulation <MAGDY Kaminski Last Filed: 05/10/23 09:32> Overall status at discharge: patient is back to baseline <MAGDY Kaminski Last Filed: 05/10/23 09:32> Time Attestation Discharge Coordination Time (in mins): 25 <MAGDY Kaminski Last Filed: 05/10/23 09:32> Quality: Safe Use of Opioids Does Pt have an Active Cancer Diagnosis on the Problem List?: No <MAGDY Kaminski Last Filed: 05/10/23 09:32> Quality: Stroke Does the patient have a stroke diagnosis?: No <MAGDY Kaminski Last Filed: 05/10/23 09:32> Physical Exam Vital Signs: Vital Signs: Last Vital Signs Temp 97.8 F 05/10/23 07:28 Pulse 68 05/10/23 07:28 Resp 18 05/10/23 07:28 BP 108/60 05/10/23 07:28 Pulse Ox 98 05/10/23 07:28 O2 Del Method Room Air 05/10/23 07:28 O2 Flow Rate 2 05/09/23 13:40 BMI result Body Mass Index 24.6 <MAGDY Kaminski Last Filed: 05/10/23 09:32> Const: General: comfortable, no acute distress and alert <Анна Lara PA-C - Last Filed: 05/10/23 09:32> General: comfortable <Francisco Rosado MD - Last Filed: 05/10/23 09:32> Nutritional Appearance: well nourished <Francisco Rosado MD - Last Filed: 05/10/23 09:32> Orientation/consciousness: patient oriented x3 <Анна Lara PA-C - Last Filed: 05/10/23 09:32> Orientation/consciousness: patient oriented x3 <Fracnisco Rosado MD - Last Filed: 05/10/23 09:32> HEENT: Head: Yes normocephalic and Yes atraumatic <Francisco Rosado MD - Last Filed: 05/10/23 09:32> Ears: hearing grossly normal bilaterally <Francisco Rosado MD - Last Filed: 05/10/23 09:32> Resp: Effort & Inspection: normal respiratory effort <Анна Lara PA-C - Last Filed: 05/10/23 09:32> Effort & Inspection: normal respiratory effort <Francisco Rosado MD - Last Filed: 05/10/23 09:32> GI: Other: Trocar incisions are clean, dry, and intact. <Francisco Rosado MD - Last Filed: 05/10/23 09:32> Inspection: Yes incision (healing well ) <MAGDY Kaminski Last Filed: 05/10/23 09:32> Inspection: Yes normal to inspection <Francisco Rosado MD - Last Filed: 05/10/23 09:32> Palpation (GI): Soft to palpation, nontender, no guarding and not rigid <MAGDY Kaminski Last Filed: 05/10/23 09:32> Palpation (GI): Soft to palpation, nontender, no guarding and not rigid <MD Ruby Ramsey Last Filed: 05/10/23 09:32> Skin: General skin exam: no rashes or lesions noted and no jaundice <Анна Lara PA-C - Last Filed: 05/10/23 09:32> Neuro: General: patient oriented x3 and moves all extremities <Анна Lara PA-C - Last Filed: 05/10/23 09:32> General: patient oriented x3 <Francisco Rosado MD - Last Filed: 05/10/23 09:32> Extrem: General: Yes no clubbing, cyanosis or edema <Francisco Rosado MD - Last Filed: 05/10/23 09:32> DS: Data Data Completed and Pending Completed studies during hospitalization [Text1]: Procedures Resection of Gallbladder, Percutaneous Endoscopic Approach (04/30/23) <Анна Lara PA-C - Last Filed: 05/10/23 09:32> Labs on day of discharge: Laboratory Results - last 24 hr 05/10/23 05:05 WBC 11.6 H RBC 4.16 L Hgb 12.7 Hct 37.9 MCV 91.1 MCH 30.5 MCHC 33.5 RDW 13.2 Plt Count 324 MPV 10.6 Absolute Nucleated RBC 0.000 Nucleated RBC % (auto) 0.0 Total Bilirubin 0.9 Direct Bilirubin 0.4 AST 163 H ALT 524 H Alkaline Phosphatase 306 H Total Protein 7.5 Albumin 4.2 <Анна Lara PA-C - Last Filed: 05/10/23 09:32> Discharge Plan Discharge Anticipated Discharge Date/Time: 05/10/23 08:30 <Анна Lara PA-C - Last Filed: 05/10/23 09:32> Patient Disposition: Home, Self-Care <Анна Lara PA-C - Last Filed: 05/10/23 09:32> Discharge Diagnosis: choledocolithiasis <Анна Lara PA-C - Last Filed: 05/10/23 09:32> choledocolithiasis <Francisco Rosado MD - Last Filed: 05/10/23 09:32> Referrals: Reji Galvin MD [Primary Care Provider] - 1 Week Francisco Rosado MD [Physician] - 1 Week <Анна Lara PA-C - Last Filed: 05/10/23 09:32> Discharge Medications: New docusate sodium [Colace] 100 mg capsule 100 mg PO BID Qty: 30 0RF Continued ibuprofen 600 mg tablet 600 mg PO Q6H PRN (Reason: fever or pain) Qty: 30 0RF <Анна Lara PA-C - Last Filed: 05/10/23 09:32> Discharge Orders: Discharge Order (Routine); Ordered 05/10/23 Ordered By: Анна Lara <Анна Lara PA-C - Last Filed: 05/10/23 09:32> Diet: Low fat, low cholesterol <Анна Lara PA-C - Last Filed: 05/10/23 09:32> Low fat, low cholesterol <Francisco Rosado MD - Last Filed: 05/10/23 09:32> Activity on Discharge: No heavy lifting <Анна Lara PA-C - Last Filed: 05/10/23 09:32> No heavy lifting <Francisco Rosado MD - Last Filed: 05/10/23 09:32> Stand Alone Forms: Patient Portal Discharge page <Анна Lara PA-C - Last Filed: 05/10/23 09:32> Activity Restrictions/Additional Instructions: Follow up in office in 1-[address] Rosado. ([phone]) Call Your Doctor If: ? ? -Your temperature exceeds 101.5? F? ? ? -You experience excessive pain or swelling ? ? -You have an unexpected reaction to medication ? ? -You experience continued vomiting/nausea <Анна Lara PA-C - Last Filed: 05/10/23 09:32> Care Plan Goals: Return to baseline health and resume normal activities following recovery period. <Анна Lara PA-C - Last Filed: 05/10/23 09:32> Health Concerns: s/p lap brina choledocolithiasis <Анна Lara PA-C - Last Filed: 05/10/23 09:32> Plan of Treatment: s/p ERCP Dc to home Stool softener F/u in office in 1-2 weeks <Анна Lara PA-C - Last Filed: 05/10/23 09:32> Assessment: Improved <Анна Lara PA-C - Last Filed: 05/10/23 09:32>
== END 2023-05-10 09:43 | disposition home or self-care (01) | DRG 252 ==
LOC: HO.ED 14:05 → HO.EDOVER 14:17 → HO.S3 15:17
PROVIDERS: Internal Medicine; Internal Medicine Gastroenterology; Physician Assistant; Admitting Provider Surgery; Emergency Provider Emergency Medicine; PCP Internal Medicine; Visit Provider Surgery
PROC: 0FC98ZZ Extirpation of Matter from Common Bile Duct, Via Natural or Artificial Opening Endoscopic (ICD-10-PCS; CPT 43260; principal; 2023-05-09 11:30)
DX: K91.86 Retained cholelithiasis following cholecystectomy (principal); Z87.891 Personal history of nicotine dependence
CPT/HCPCS: 43262; 43264; 36415; 74181; 76705; 80053; 80076; 81003; 83690; 84484; 84702; 85025; 85027; 85610; 85730; 93005; 99221; 99285; C1769; J0131; J1100; J1596; J2250; J2270; J2371; J2405; J2543; J2704; J3010; Q9967

== ENCOUNTER → 2023-05-08 12:11 | Outpatient (BNV) | payer OTHER, SELFPAY | PROVIDERS: Admitting Provider Surgery; Emergency Provider Emergency Medicine; PCP Internal Medicine; Visit Provider Internal Medicine Cardiovascular Disease | DX: I51.7 Cardiomegaly (principal); K80.50 Calculus of bile duct without cholangitis or cholecystitis without obstruction | CPT/HCPCS: 93010 ==

== ENCOUNTER → 2023-05-08 14:08 | Outpatient (BNV) | payer OTHER, SELFPAY | PROVIDERS: Admitting Provider Surgery; Emergency Provider Emergency Medicine; PCP Internal Medicine; Visit Provider Surgery | DX: R79.89 Other specified abnormal findings of blood chemistry (principal); K80.50 Calculus of bile duct without cholangitis or cholecystitis without obstruction | CPT/HCPCS: 99024; 99222 ==

== ENCOUNTER 2023-05-23 13:40 | Outpatient (AMB) | payer OTHER, SELFPAY ==
--- NOTE | 2023-05-23 13:44 | MHC.OFFVIS ---
Intake Vital Signs 05/23/23 13:50 Height 5 ft 3 in Weight 139 lb BMI 24.6 BP 120/60 Blood Pressure Location Lt brachial Position Sitting Pulse 78 Intake Visit Reasons: S/p choledocolithiais after lap chol surgery Intake Note: Patient is seen in office for post op assessment post laparoscopic cholecystectomy. Pt c/o: denies any concerns at the time of visit, had one episode of vomit after eating soup ER:05/10/23 Travel Registered Nurse Pacu Required: No Accompanied by: Spouse Allergies oxycodone Allergy (Verified 05/23/23 13:50) Itching Medication List - Last Reconciled 05/23/23 by Francisco Rosado MD docusate sodium (Colace) 100 mg PO BID ibuprofen 600 mg PO Q6H PRN HPI HPI Comments History of Present Illness Details Patient returns following recent hospitalization for a retained common bile duct stone. She subsequently underwent ERCP (Dr. Estrella) and now feels much improved. She had 1 episode of vomiting after eating soup but now has no further pain, nausea or vomiting. She denies fever or chills. PFSH Medical History Acute cholecystitis Surgical History S/P laparoscopic cholecystectomy (05/01/23) Hx of tubal ligation Hx of section Social History Household Members: Spouse and Children Housing: Apartment Do you presently have visiting nurse or other home services: No Alcohol intake: never Patient Tobacco Use Status: Former Tobacco user service: No Current occupational status: unemployed Current occupation: right hand dominant Physical Exam Vital Signs: Last Vital Signs Pulse 78 05/23/23 13:50 BP 120/60 05/23/23 13:50 BMI result Body Mass Index 24.6 Const General: no acute distress Resp Effort & Inspection: normal respiratory effort GI Inspection: Yes normal to inspection and Yes incision (Trocar incisions are clean, dry and intact) Palpation (GI): Soft to palpation, nontender, no guarding and not rigid Extrem General: Yes no clubbing, cyanosis or edema Assessment & Plan Assessment & Plan (1) Choledocholithiasis: Code(s): K80.50 - Calculus of bile duct without cholangitis or cholecystitis without obstruction Plan 43-year-old female patient status post laparoscopic cholecystectomy with subsequent common bile duct stone requiring ERCP with sphincterotomy and stone extraction. She is much improved today with no further abdominal symptoms. She is eating well without nausea or vomiting. She may resume normal activity without restrictions. She should continue to avoid fried/greasy foods for another 2 weeks after which she may resume normal diet. She should follow up as needed. Coding Level of Care Code Global (66312) Diagnoses Choledocholithiasis K80.50
[2023-05-23 13:50] VITALS: BP 120/60; PULSE 78; BMI 24.6
== END 2023-05-23 14:33 | disposition home or self-care (01) ==
PROVIDERS: PCP Internal Medicine; Visit Provider Surgery
DX: K80.50 Calculus of bile duct without cholangitis or cholecystitis without obstruction (principal)
CPT/HCPCS: 99024

== ENCOUNTER → 2023-05-23 13:40 | Outpatient (BNVA) | payer OTHER, SELFPAY | PROVIDERS: PCP Internal Medicine; Visit Provider Surgery | DX: K80.50 Calculus of bile duct without cholangitis or cholecystitis without obstruction (principal) | CPT/HCPCS: 99212 ==

== ENCOUNTER 2023-06-02 08:41 | Emergency (ER) | payer OTHER, SELFPAY ==
--- NOTE | ~2023-06-02 | US_ITS ---
EXAMINATION: US PELVIS CLINICAL INFORMATION: Heavy vaginal bleeding and abdominal pain COMPARISON: None available. TECHNIQUE: Ultrasound of the pelvis is performed using both transabdominal and transvaginal transducers along with Doppler. Transvaginal imaging is performed due to inadequate visualization transabdominally. FINDINGS: The uterus is anteverted and measures 7.4 x 4.2 x 5.3 cm in dimension. No focal uterine lesion is seen. Endometrial thickness is normal measuring 0.2 cm. There is a small linear echogenic focus with shadowing in the cervix, injection representing a small calcification versus possible air. There are small nabothian cysts in the cervix. The right ovary measures 3.8 x 1.6 x 1.8 cm. There is a small right ovarian cyst that measures 1.1 x 1.3 cm. The left ovary is enlarged and measures 4.8 x 4.5 x 5.4 cm. There is a 4 x 5 cm left ovarian heterogeneous echogenic mass with dirty shadowing, question representing a dermoid. Arterial and venous flow is documented to both ovaries and there is no evidence of torsion at this time. There is no fluid in the pelvis. US/US pelvic and transvaginal IMPRESSION: Enlarged left ovary with echogenic heterogeneous mass, question representing a dermoid. Follow-up MRI of the pelvis recommended. The endometrium does not appear thickened.
[2023-06-02 09:10] VITALS: BP 132/67; PULSE 83; RESP 18; TEMP 36.7; O2SAT 99; BMI 23.9
[2023-06-02 09:33] LABS: MANUAL DIFF FLAG NO
[2023-06-02 09:35] LABS: Basophils Percent Auto 0.5 % (0-2); Eosinophils Absolute Auto 0.1 X10*3/uL (0.0-0.4); Eosinophils Percent Auto 1.7 % (0-4); Hematocrit 40.9 % (37.0-47.0); Hemoglobin 13.3 g/dl (12.0-16.0); Imm Gran Abs Auto 0.02 X10*3/uL (0.00-0.03); Imm Gran Pct Auto 0.3 % (0.0-0.4); Lymphocytes Absolute Auto 2.3 X10*3/uL (1.2-4.9); Lymphocytes Percent Auto 29.1 % (20-40); Mean Corpuscular HGB Conc 32.5 g/dl (31.0-35.0); Mean Corpuscular Hemoglobin 30.2 pg (27.0-33.0); Mean Corpuscular Volume 92.7 fL (80.0-98.0); Mean Platelet Volume 10.4 fL (9.4-12.3); Monocytes Absolute Auto 0.5 X10*3/uL (0.1-1.2); Monocytes Percent Auto 6.6 % (2-11); Neutrophils Absolute Auto 4.8 x10*3/uL (2.0-8.3); Neutrophils Percent Auto 61.8 % (45-73); Platelet Count 304 X10*3/uL (160-400); Red Blood Count 4.41 X10*6/uL (4.20-5.50); Red Cell Distribution Width 13.2 % (11.0-16.0); White Blood Count 7.7 X10*3/uL (4.8-10.8)
[2023-06-02 09:47] LABS: Anion Gap 12 (12-20); Blood Urea Nitrogen 10 mg/dL (9-16); Calcium 9.4 mg/dL (8.4-10.2); Carbon Dioxide 27 mmol/L (22-29); Chloride 106 mmol/L (96-108); Creatinine Clr Calc Pharmacy 80.8; Estimated Glomerular Filt Rate > 60; Glucose Random 78 mg/dL (60-115); Potassium 4.3 mmol/L (3.3-5.1); Sodium 141 mmol/L (135-145)
[2023-06-02 12:47] LABS: Alanine Aminotransferase 16 U/L (0-31); Albumin Level 4.2 g/dL (3.5-5.0); Alkaline Phosphatase 88 U/L (39-117); Aspartate Amino Transferase 24 U/L (5-31); Bilirubin Direct 0.2 mg/dL (0.0-0.5); Bilirubin Total 0.4 mg/dL (0.0-1.0); Total Protein 7.7 g/dL (6.5-8.0)
[2023-06-02 12:48] LABS: HCG Quantitative < 2 mIU/mL
--- NOTE | 2023-06-02 16:34 | ED_ITS ---
HPI - Female Genitourinary General Chief complaint: Urogenital-Female Stated complaint: ? Gallbladder Stones Time Seen by Provider: 06/02/23 16:31 Source: patient Mode of arrival: ambulatory Limitations: language barrier ( Guinean-speaking buttonhole maker hand utilized) History of Present Illness HPI Narrative: patient is a 43-year-old female who presents emergency department for evaluation of vaginal bleeding. She reports her last menstrual period to be May 18-May 22. On May 28 she began with vaginal bleeding again, over the past 3 days she reports that she is having increased bleeding, using large pads and changing every 3-4 hours. She reports having abdominal pain, mainly suprapubic region intermittently. She does report undergoing cholecystectomy on April 30, with subsequent choledocholithiasis for which she underwent ERCP in sphincterotomy on 05/09/2023, re-evaluated by General surgery 05/23/2023 and was advised everything was healing normally. Related Data Previous Rx's ?Medication ?Instructions ?Recorded ibuprofen 600 mg tablet 600 mg PO Q6H PRN fever or pain 04/29/23 #30 tabs docusate sodium 100 mg capsule 100 mg PO BID constipation #30 caps 05/10/23 (Colace) Allergies Allergy/AdvReac Type Severity Reaction Status Date / Time oxycodone Allergy Itching Verified 06/02/23 09:19 Review of Systems 2 Review of Systems: Yes all other systems are reviewed and are negative [facility] Past Medical History Attestation statement: The following information was validated with the patient. Source: old records reviewed Medical History Acute cholecystitis Surgical History S/P laparoscopic cholecystectomy (05/01/23) Hx of tubal ligation Hx of section Social History Social History Household Members: Spouse and Children Housing: Apartment Do you presently have visiting nurse or other home services: No Alcohol intake: never Patient Tobacco Use Status: Former Tobacco user Advance Directives: No Advance Directives Information Provided: No service: No Current occupational status: unemployed Current occupation: right hand dominant Physical Exam 2 Vital Signs: Vital Signs: Last Vital Signs Temp 98.1 F 06/02/23 09:10 Pulse 83 06/02/23 09:10 Resp 18 06/02/23 09:10 BP 132/67 06/02/23 09:10 Pulse Ox 99 06/02/23 09:10 O2 Del Method Room Air 06/02/23 09:10 BMI result Body Mass Index 23.9 Appearance: Alert.?Oriented to person, place and time. No acute distress.?Normal affect. Eyes: Pupils equal, round and reactive to light.? ENT: Pharynx normal.?? Neck: Normal inspection.? Neck supple.?? CVS: Heart sounds normal. Normal heart rate and rhythm.? Pulses normal.?? Respiratory: No respiratory distress.? Lung sounds clear to auscultation bilaterally?? Abdomen: Soft and non-tender. Normoactive bowel sounds.?? Genitourinary:? Supervised by ED CASSIE Milton. Normal external appearance of urethra.? No lesions/lacerations or discharge or tenderness noted. No Bartholin cyst noted.? Speculum exam: normal appearance/palpation of vagina normal. No abnormal vaginal discharge, swelling, erythema, laceratons, , there is a small amount of active bleeding noted within the vaginal vault..?No foreign bodies noted.? No vaginal tenderness noted.? Normal appearance of cervix Aside from bleeding from the cervical os which is closed. Normal palpation of cervical. No cervical lesion/mass.?? No cervical motion tenderness noted.? Negative chandelier sign.? Normal bimanual exam.? Uterine size normal. Uterine consistency normal.? Bladder normal to palpation. Normal adnexa. Normal rectovaginal exam. Skin: Skin warm and dry.? Normal skin color.? Extremities: No lower extremity edema.? Neuro: Moves all extremities spontaneously. Sensation intact bilaterally. CN II- XII intact. No focal neuro deficits. Ambulates with normal steady gait. Medical Decision Making Medical Decision Making MDM Narrative: patient is a 43-year-old female who presents emergency department for evaluation of vaginal bleeding as per HPI, she has also had intermittent suprapubic abdominal pain, though at this time is not present. Recent cholecystectomy with choledocholithiasis and subsequent ERCP as noted in HPI. Her abdominal examination is benign. There is no tenderness, rigidity or guarding. Clinically have lower suspicion for acute abdominal pathology. Reviewed labs that were obtained prior to my assumption of care, no leukocytosis, no anemia despite the heavy bleeding as she reported. No electrolyte derangement. No PAVAN. CMP is unremarkable. HCG is negative. Urinalysis w/o infection. pelvic examination reveals bleeding from the cervical os which appears closed, otherwise unremarkable. Reported no concerns for sexually transmitted infections however testing was sent to exclude infection and is pending at this time. Ultrasound reveals enlarged left ovary with echogenic heterogeneous mass, concerning for possible dermoid, recommendation of follow-up MRI, no thickening of the endometrium, no evidence of ovarian torsion on exam. Patient was made aware of these findings. Advised outpatient follow- up with textile designs sales representative. Discussed strict return precautions. All questions answered. Stable for discharge. Differential Diagnosis Differential Diagnoses: The differential diagnosis associated with the presentation includes ( dysfunctional uterine bleeding, uterine fibroids, ovarian cyst) Admission/Observation Consideration of admission/observation: Escalation of care including admission/observation considered Lab Data MDM Lab Attestation statement: I reviewed the patient's lab results. ( see narrative above) 06/02/23 09:30 06/02/23 09:30 Labs: Lab Results 06/02/23 06/02/23 Range/Units 09:30 17:17 WBC 7.7 (4.8-10.8) X10*3/uL RBC 4.41 (4.20-5.50) X10*6/uL Hgb 13.3 (12.0-16.0) g/dl Hct 40.9 (37.0-47.0) % MCV 92.7 (80.0-98.0) fL MCH 30.2 (27.0-33.0) pg MCHC 32.5 (31.0-35.0) g/dl RDW 13.2 (11.0-16.0) % Plt Count 304 (160-400) X10*3/uL MPV 10.4 (9.4-12.3) fL Immature Gran % (Auto) 0.3 (0.0-0.4) % Neut % (Auto) 61.8 (45-73) % Lymph % (Auto) 29.1 (20-40) % [place] % (Auto) 6.6 (2-11) % Eos % (Auto) 1.7 (0-4) % Baso % (Auto) 0.5 (0-2) % Lymph # (Auto) 2.3 (1.2-4.9) X10*3/uL [place] # (Auto) 0.5 (0.1-1.2) X10*3/uL Eos # (Auto) 0.1 (0.0-0.4) X10*3/uL Baso # (Auto) 0.0 (0.0-0.2) X10*3/uL Abs Immat Gran (auto) 0.02 (0.00-0.03) X10*3/uL Absolute Neuts (auto) 4.8 (2.0-8.3) x10*3/uL Absolute Nucleated RBC 0.000 (0.0-0.012) X10*3/uL Nucleated RBC % (auto) 0.0 (0.0-0.2) /100WBC Sodium 141 (135-145) mmol/L Potassium 4.3 (3.3-5.1) mmol/L Chloride 106 (96-108) mmol/L Carbon Dioxide 27 (22-29) mmol/L Anion Gap 12 (12-20) BUN 10 (9-16) mg/dL Creatinine 0.75 (0.5-1.4) mg/dL Estim Creat Clear Calc 80.8 Estimated GFR > 60 Random Glucose 78 (60-115) mg/dL Calcium 9.4 D (8.4-10.2) mg/dL Total Bilirubin 0.4 (0.0-1.0) mg/dL Direct Bilirubin 0.2 (0.0-0.5) mg/dL AST 24 (5-31) U/L ALT 16 (0-31) U/L Alkaline Phosphatase 88 (39-117) U/L Total Protein 7.7 (6.5-8.0) g/dL Albumin 4.2 (3.5-5.0) g/dL Beta HCG, Quant < 2 mIU/mL Urine Color Red A Urine Appearance Turbid Urine pH 6.5 (5.0-9.0) Ur Specific [place] 1.015 (1.005-1.025) Urine Protein 100 (2+) H (Neg-Trace) mg/dL Urine Glucose (UA) Negative (Negative) mg/dL Urine Ketones Negative (Negative) mg/dL Urine Blood Large (3+) H (Negative) Urine Nitrite Negative (Negative) Ur Leukocyte Esterase Trace H (Negative) Urine RBC >20 H (0-2) /HPF Urine WBC 0-5 (0-5) /HPF Ur Squamous Epith Cells 3-5 (0-2) /HPF Urine Bacteria None Seen (None Seen) Radiology Impression Discussion of test interpretation with radiology: I have reviewed the radiologist's reading. Radiologist Impression: US/US pelvic and transvaginal IMPRESSION: Enlarged left ovary with echogenic heterogeneous mass, question representing a dermoid. Follow-up MRI of the pelvis recommended. The endometrium does not appear thickened. Independent Historian Clinical information obtained from an independent historian. History obtained from or confirmed by: Spouse ( present who confirms history) External Record Review External record reviewed: Inpatient record and Outpatient record Tests considered The following testing was considered but not selected: no indication for emergent MRI Prescription Management I considered prescription management with: Other Discharge Plan Discharge Clinical Impression: Dysmenorrhea Patient Disposition: Home, Self-Care Instructions: Dysmenorrhea (ED) Additional Instructions: As discussed, it is important that you follow-up with a textile designs sales representative doctor regarding the ovarian mass that was seen on ultrasound today. Please contact their office 1st thing Monday morning to arrange for a new patient visit to be evaluated for this. You may return back to emergency department with any new or worsening symptoms or concerns. Prescriptions: No Action docusate sodium [Colace] 100 mg capsule 100 mg PO BID Qty: 30 0RF ibuprofen 600 mg tablet 600 mg PO Q6H PRN (Reason: fever or pain) Qty: 30 0RF Referrals: Physician,Garth J [Primary Care Provider] - Ernesto Abreu MD [Physician] - Print Language: Guinean
[2023-06-02 17:42] LABS: Appearance Urine Turbid; Glucose Urine UA Negative (Negative); Leukocyte Esterase Urine Trace (Negative); Nitrite Urine Negative (Negative); PH 6.5 (5.0-9.0); Specific Gravity - Urine 1.015 (1.005-1.025); UMIC TRIGGER UACC YES; Urine Blood Large (3+) (Negative); Urine Ketones Negative (Negative); Urine Protein 100 (2+) mg/dL (Neg-Trace)
[2023-06-02 17:45] LABS: Color Urine Red
[2023-06-02 17:46] LABS: Bacteria Urine None Seen (None Seen); RBC Urine >20 /HPF (0-2); WBC Urine 0-5 /HPF (0-5)
[2023-06-02 18:06] VITALS: BP 110/64; PULSE 65; RESP 16; TEMP 36.8; O2SAT 99
[2023-06-02 18:38] LABS: Hyaline Casts Urine 0-2 /LPF (0-2)
[2023-06-03 03:13] LABS: CT PCR NOT DETECTED (Not Detect.); NG PCR NOT DETECTED (Not Detect.)
[2023-06-03 14:50] LABS: BV Int Neg Control Negative (Negative); BV Int Pos Control Positive (Positive)
== END 2023-06-02 18:07 | disposition home or self-care (01) ==
PROVIDERS: Nurse Practitioner Family; Physician Assistant Medical; Emergency Provider Emergency Medicine
DX: N94.6 Dysmenorrhea, unspecified (principal); Z98.890 Other specified postprocedural states; Z88.5 Allergy status to narcotic agent
CPT/HCPCS: 0353U; 36415; 76830; 76856; 80048; 80076; 81001; 84702; 85025; 87480; 87510; 87660; 99282; 99284

== ENCOUNTER 2023-12-05 09:06 | Emergency (ER) | payer OTHER, SELFPAY ==
--- NOTE | ~2023-12-05 | US_ITS ---
EXAMINATION: US PELVIS CLINICAL INFORMATION: Vaginal bleeding, pain. Currently having menstrual period. COMPARISON: Pelvic ultrasound 06/02/2023. TECHNIQUE: Ultrasound of the pelvis is performed using both transabdominal and transvaginal transducers along with Doppler. Transvaginal imaging is performed due to inadequate visualization transabdominally. FINDINGS: Normal uterine morphology measuring 9.2 x 4.3 x 5 cm. Subjective increased heterogeneity of the uterine myometrium. There is a 1.2 x 1.1 x 1.1 cm intramural lesion in the anterior upper uterus, most suggestive of a fibroid. Homogeneous endometrium measuring 0.1 m in thickness. Nonspecific hyperechoic focus overlying the endometrium measuring 0.2 cm. Ovaries are enlarged. The right ovary measures 5.1 x 5.1 x 3.8 cm, 51 mL and the left ovary measures 5.7 x 5 x 5 cm, 74 mL. There is a 4.1 x 3.2 x 4.1 cm complicated cyst in the right ovary with lacelike avascular debris and a layering possibly retractile clot. There is redemonstration of a partially seen complex mass in the left ovary with hyperechoic content generating posterior shadowing. Flow to the right ovary is preserved at the moment of this examination. Flow to the left ovary is limitedly assessed in part due to the shadowing from the mass. Small amount of free fluid in the pelvis. US/US pelvic and transvaginal IMPRESSION: 1. Subjective increased heterogeneity of the uterine myometrium that could be seen with adenomyosis. 2. A 1.2 cm intramural uterine lesion is most consistent with a fibroid. 3. Nonspecific 0.2 cm hyperechoic focus in the upper endometrium, possibly a calcification. Recommend attention on follow-up. 4. Partially seen left ovary with redemonstration of a complex mass with imaging features that are most suggestive of a dermoid, though incompletely visualized in this examination, unable to compare size with the prior ultrasound. Recommend further evaluation with pelvic MRI with and without intravenous contrast. 5. There is a 4.1 cm hemorrhagic cyst in the right ovary. Electronically signed by: Sarah Luz MD 12/05/2023 06:29 PM EDT
[2023-12-05 09:39] VITALS: BP 124/62; PULSE 71; RESP 18; TEMP 36.6; O2SAT 99; BMI 22.6
[2023-12-05 10:00] LABS: Basophils Absolute Auto 0.1 X10*3/uL (0.0-0.2); Basophils Percent Auto 0.8 % (0-2); Eosinophils Absolute Auto 0.1 X10*3/uL (0.0-0.4); Eosinophils Percent Auto 1.3 % (0-4); Hematocrit 40.1 % (37.0-47.0); Hemoglobin 13.3 g/dl (12.0-16.0); Imm Gran Abs Auto 0.02 X10*3/uL (0.00-0.03); Imm Gran Pct Auto 0.3 % (0.0-0.4); Lymphocytes Absolute Auto 2.1 X10*3/uL (1.2-4.9); Lymphocytes Percent Auto 28.6 % (20-40); MANUAL DIFF FLAG NO; Mean Corpuscular HGB Conc 33.2 g/dl (31.0-35.0); Mean Corpuscular Hemoglobin 30.6 pg (27.0-33.0); Mean Corpuscular Volume 92.4 fL (80.0-98.0); Mean Platelet Volume 10.3 fL (9.4-12.3); Monocytes Absolute Auto 0.5 X10*3/uL (0.1-1.2); Monocytes Percent Auto 6.7 % (2-11); Neutrophils Absolute Auto 4.6 x10*3/uL (2.0-8.3); Neutrophils Percent Auto 62.3 % (45-73); Platelet Count 291 X10*3/uL (160-400); Red Blood Count 4.34 X10*6/uL (4.20-5.50); Red Cell Distribution Width 13.3 % (11.0-16.0); White Blood Count 7.4 X10*3/uL (4.8-10.8)
[2023-12-05 10:20] LABS: Alanine Aminotransferase 8 U/L (0-31); Albumin Level 4.6 g/dL (3.5-5.0); Alkaline Phosphatase 64 U/L (39-117); Anion Gap 11 (12-20); Aspartate Amino Transferase 19 U/L (5-31); Bilirubin Total 0.4 mg/dL (0.0-1.0); Blood Urea Nitrogen 7 mg/dL (9-16); Calcium 9.5 mg/dL (8.4-10.2); Carbon Dioxide 28 mmol/L (22-29); Chloride 107 mmol/L (96-108); Creatinine Clr Calc Pharmacy 84.2; Estimated Glomerular Filt Rate > 60; Glucose Random 93 mg/dL (60-115); Potassium 4.6 mmol/L (3.3-5.1); Sodium 141 mmol/L (135-145); Total Protein 7.7 g/dL (6.5-8.0)
[2023-12-05 13:16] LABS: HCG Quantitative < 2 mIU/mL
[2023-12-05 14:51] VITALS: BP 125/53; PULSE 69; RESP 20; TEMP 36.6; O2SAT 99
--- NOTE | 2023-12-05 14:58 | ED_ITS ---
HPI - General Adult General Chief complaint: Vaginal Bleeding Stated complaint: Vaginal bleeding Time Seen by Provider: 12/05/23 16:19 History of Present Illness ED Provider: Shahid ROMERO narrative: The patient is a 43-year-old female who had a cholecystectomy 7 months ago in April of 2023. She was subsequently rehospitalized for choledocholithiasis and had an ERCP. She says that since the problems with her gallbladder she has had persistent vaginal bleeding. She describes intermittent vaginal bleeding during the last 7 months. She has had very few days without any bleeding. She reports that sometimes she goes through his many as 5 pads an hour. 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 She has also had some low back pain that she was concerned could represent a urinary infection but she denies any painful urination, urinary frequency, or urinary urgency. She indicates that she has pain across her lower back. At around the time she had her workup for her gallbladder and her choledocholithiasis she also had an ultrasound of her pelvis she had an ultrasound of her pelvis on 06/02/2023. This showed an enlarged left ovary with echogenic heterogeneous mass possibly representing a dermoid cyst. This was 4 cm x 5 cm. She says that she was told that given the size of this mass that she should follow up with Gynecology at [facility] instead of with [facility]'s Gynecology. She says that she had an appointment in July at [facility] but she missed this appointment because of a in the family. She currently has an appointment on December 30. Related Data Previous Rx's ?Medication ?Instructions ?Recorded ibuprofen 600 mg tablet 600 mg PO Q6H PRN fever or pain 04/29/23 #30 tabs docusate sodium 100 mg capsule 100 mg PO BID constipation #30 caps 05/10/23 (Colace) tranexamic acid 650 mg tablet 1,300 mg (2 x 650 mg) PO TID 5 12/05/23 days #30 tabs Allergies Allergy/AdvReac Type Severity Reaction Status Date / Time oxycodone Allergy Itching Verified 12/05/23 09:43 Review of Systems 2 Review of Systems: Yes all other systems are reviewed and are negative [facility] Past Medical History Medical History Acute cholecystitis Surgical History S/P laparoscopic cholecystectomy (05/01/23) Hx of tubal ligation Hx of section Social History Social History Household Members: Spouse and Children Housing: Apartment Do you presently have visiting nurse or other home services: No Alcohol intake: never Patient Tobacco Use Status: Former Tobacco user Smoked in Last 30 Days: No Use of substances other than those prescribed or required for medical reasons: No Advance Directives: No Advance Directives Information Provided: Yes Patient : No service: No Current occupational status: unemployed Current occupation: right hand dominant Physical Exam ED Vital Signs: Vital Signs - 24 hr 12/05/23 09:39 12/05/23 14:51 12/05/23 16:22 Temperature 98 F 98 F 98.5 F Pulse Rate 71 69 68 Respiratory Rate 18 20 16 Blood Pressure 124/62 125/53 L 108/62 Pulse Oximetry 99 99 100 Oxygen Delivery Method Room Air Room Air Room Air 12/05/23 18:00 Temperature 98.5 F Pulse Rate 68 Respiratory Rate 16 Blood Pressure 108/62 Pulse Oximetry 100 Oxygen Delivery Method Room Air BMI result Body Mass Index 22.6 Const Other: The patient has the appearance of a slim and healthy looking 43-year-old. She does not appear ill or in distress or uncomfortable in any way. HENMT Other: Face is symmetrical. Mucous membranes moist. Eyes General: appearance normal, both eyes and all related structures Neck Other: Neck is unremarkable, moving her neck easily Resp Effort & Inspection: normal respiratory effort Auscultation: clear to auscultation bilaterally Cardio Rate: regular rate Rhythm: regular rhythm Heart sounds: S1 normal heart sound present and S2 normal heart sound present GI Other: The abdomen is soft and flat. There was some mild right lower quadrant tenderness without rebound or guarding. Back/Spine/Pelvis Other: No CVA percussion tenderness on either flank Skin Other: Skin is dry and unremarkable. Neuro Other: The patient is awake and alert with a normal mental status. Cranial nerves are grossly intact. She moves her extremities normally and seems grossly neurologically intact. Extrem Other: No peripheral edema Course Course Course Narrative: 3:03 PM; RME: Done by MAYA Flores. On re-evaluation 43-year-old female presents to ED for continuous vaginal bleeding. Patient states have been multiple episodes of vaginal bleeding. Patient has had bleeding for 5 days and not suppsoed to be on menstruation. Patient's labs and vital signs shows she is hemodynamically stable. Blood work negative for . Will send patient for ultrasound check for any cyst rupture. Patient is stable. Patient denied any pain. We will check for fibroids on ultrasound. Medications Administered Discontinued Medications Generic Name Dose Route Start Last Admin Trade Name Freq PRN Reason Stop Dose Admin Ketorolac Tromethamine 30 mg 12/05/23 16:32 12/05/23 16:51 Ketorolac Tromethamine 30 Mg/Ml Vial IM 12/05/23 16:33 30 mg ONCE ONE Administration Medical Decision Making Medical Decision Making [facility] Narrative: The patient is a 43-year-old female who says that she has had several months of intermittent but fairly persistent abnormal vaginal bleeding. Her hemoglobin is normal and the same as it was when last checked a few months ago. She does not seem to have any significant blood loss. She was also concerned that she might have a UTI because she has had some low back pain. She has not had any dysuria, urgency, or frequency however. She has no CVA percussion tenderness on exam. She has had no fever, sweats, chills, no nausea or vomiting. On ultrasound of her pelvis in May she was found to have a left ovarian mass which might be a dermoid cyst. She was advised to follow up with [facility]. She missed a July appointment at [facility] because of a family emergency. She has an appointment on December 30. An ultrasound of her pelvis was done today that shows a fibroid and some mild increased heterogeneity of the uterine myometrium that could be seen with adenomyosis. The left ovarian mass was only partially visualized and the size could not be compared with the prior ultrasound. Again a recommendation was made for a pelvic MRI. Overall the patient clinically looks very well. Given the absence of any symptoms of UTI she will not be started on antibiotics although her UA was potentially consistent with a UTI. I do not think the findings on her ultrasound today necessitate an earlier appointment than her current appointment on December 30 with [facility]. Her other labs were quite reassuring and I think she may be discharged. She was given a prescription for oral tranexamic acid to see if this might help with her vaginal bleeding. Lab Data 12/05/23 09:54 12/05/23 09:54 Labs: Lab Results 12/05/23 12/05/23 Range/Units 09:54 15:06 WBC 7.4 (4.8-10.8) X10*3/uL RBC 4.34 (4.20-5.50) X10*6/uL Hgb 13.3 (12.0-16.0) g/dl Hct 40.1 (37.0-47.0) % MCV 92.4 (80.0-98.0) fL MCH 30.6 (27.0-33.0) pg MCHC 33.2 (31.0-35.0) g/dl RDW 13.3 (11.0-16.0) % Plt Count 291 (160-400) X10*3/uL MPV 10.3 (9.4-12.3) fL Immature Gran % (Auto) 0.3 (0.0-0.4) % Neut % (Auto) 62.3 (45-73) % Lymph % (Auto) 28.6 (20-40) % [place] % (Auto) 6.7 (2-11) % Eos % (Auto) 1.3 (0-4) % Baso % (Auto) 0.8 (0-2) % Lymph # (Auto) 2.1 (1.2-4.9) X10*3/uL [place] # (Auto) 0.5 (0.1-1.2) X10*3/uL Eos # (Auto) 0.1 (0.0-0.4) X10*3/uL Baso # (Auto) 0.1 (0.0-0.2) X10*3/uL Abs Immat Gran (auto) 0.02 (0.00-0.03) X10*3/uL Absolute Neuts (auto) 4.6 (2.0-8.3) x10*3/uL Absolute Nucleated RBC 0.000 (0.0-0.012) X10*3/uL Nucleated RBC % (auto) 0.0 (0.0-0.2) /100WBC Sodium 141 (135-145) mmol/L Potassium 4.6 (3.3-5.1) mmol/L Chloride 107 (96-108) mmol/L Carbon Dioxide 28 (22-29) mmol/L Anion Gap 11 L (12-20) BUN 7 L (9-16) mg/dL Creatinine 0.72 (0.5-1.4) mg/dL Estim Creat Clear Calc 84.2 Estimated GFR > 60 Random Glucose 93 (60-115) mg/dL Calcium 9.5 (8.4-10.2) mg/dL Total Bilirubin 0.4 (0.0-1.0) mg/dL AST 19 (5-31) U/L ALT 8 (0-31) U/L Alkaline Phosphatase 64 (39-117) U/L C-Reactive Protein < 0.04 (< or = 0.50) mg/dL Total Protein 7.7 (6.5-8.0) g/dL Albumin 4.6 (3.5-5.0) g/dL Beta HCG, Quant < 2 mIU/mL Urine Color RED Urine Appearance Hazy Urine pH 8.0 (5.0-9.0) Ur Specific [place] 1.020 (1.005-1.025) Urine Protein See Note (Neg-Trace) mg/dL Urine Glucose (UA) Negative (Negative) mg/dL Urine Ketones Negative (Negative) mg/dL Urine Blood Large (3+) H (Negative) Urine Nitrite See Note (Negative) Ur Leukocyte Esterase Negative (Negative) Urine RBC >20 H (0-2) /HPF Urine WBC 11-20 H (0-5) /HPF Ur Squamous Epith Cells 6-10 (0-2) /HPF Urine Bacteria 4+ (None Seen) Hyaline Casts 0-2 (0-2) /LPF Urine Test NEGATIVE (NEGATIVE) Discharge Plan Discharge Clinical Impression: Abnormal vaginal bleeding, Left ovarian cyst Patient Disposition: Home, Self-Care Additional Instructions: I will call you at [phone] if there are any urgent findings on your ultrasound. Please take the medication, tranexamic acid, 3 times a day as prescribed for 5 days. This should help reduce the vaginal bleeding. Your blood counts and your blood tests are otherwise very reassuring today. Please plan on keeping your appointment early December at [facility]. Return to the emergency room if you are significantly worse. Prescriptions: New tranexamic acid 650 mg tablet 1,300 mg PO TID 5 Days Qty: 30 0RF No Action docusate sodium [Colace] 100 mg capsule 100 mg PO BID Qty: 30 0RF ibuprofen 600 mg tablet 600 mg PO Q6H PRN (Reason: fever or pain) Qty: 30 0RF Referrals: [facility] [Outside] Reji Galvin MD [Physician] - Interventions: ED Discharge Assessment Last Done: 12/05/23 18:00 Discharge Date/Time: 12/05/23 18:01 Print Language: Grenadian
[2023-12-05 15:18] LABS: Appearance Urine Hazy; Color Urine RED; Glucose Urine UA Negative (Negative); Leukocyte Esterase Urine Negative (Negative); UMIC TRIGGER UACC YES; Urine Blood Large (3+) (Negative); Urine Ketones Negative (Negative)
[2023-12-05 15:21] LABS: UPreg QC Valid YES; Urine Pregnancy NEGATIVE (NEGATIVE)
[2023-12-05 15:30] LABS: Bacteria Urine 4+ (None Seen); Hyaline Casts Urine 0-2 /LPF (0-2); RBC Urine >20 /HPF (0-2); UACC Culture Trigger YES
[2023-12-05 16:22] VITALS: BP 108/62; PULSE 68; RESP 16; TEMP 36.9; O2SAT 100
[2023-12-05] MEDS: Ketorolac Tromethamine 30 MG/ML VIAL IM (16:51)
[2023-12-05 16:55] LABS: C Reactive Protein < 0.04 mg/dL (< or = 0.50)
[2023-12-05 18:00] VITALS: BP 108/62; PULSE 68; RESP 16; TEMP 36.9; O2SAT 100
== END 2023-12-05 18:01 | disposition home or self-care (01) ==
PROVIDERS: Physician Assistant; Emergency Provider Emergency Medicine
DX: N83.202 Unspecified ovarian cyst, left side (principal); R10.2 Pelvic and perineal pain; N93.9 Abnormal uterine and vaginal bleeding, unspecified; Z79.899 Other long term (current) drug therapy
CPT/HCPCS: 36415; 76830; 76856; 80053; 81001; 81025; 84702; 85025; 86140; 87086; 87088; 87186; 93975; 96372; 99284; J1885

== ENCOUNTER 2024-05-03 09:44 | Outpatient (AMB) | payer OTHER, SELFPAY ==
--- NOTE | 2024-05-03 10:02 | AM.OFFWIN_ITS ---
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 patient has been having stressful times recently with her brothers passing and has been struggling with sleeping. She came into clinic today to have the bump get checked out. Patient Tobacco Use Status: Former Tobacco user Allergies oxycodone Allergy (Verified 12/05/23 09:43) Itching HPI HPI Comments History of Present Illness Details Pt's son is interpreting for her, she speaks Trinidadian. History of Present Illness - The patient is a 44-year-old female pr esenting with evaluation of a palpable neck mass and sleep disturbances. - Insomnia and stress-induced sleep dist urbances began two to three weeks ago following the loss of her brother. - Concurrent development of posterior ne ck lump noted; initially palpable during the insomnia period and decreasing in prominence as her sleep improved. - The lymph node is characterized as non -painful with no associated systemic symptoms like fever or night sweats. - The patient had trialed ZQuil with min imal improvement in sleep quality. Physical Exam General: Cooperative, healthy appearing, comfortable, no acute distress and well developed Orientation: Patient oriented x3 Limitations: No limitations Head: Normal to inspection Ears: Hearing grossly normal bilaterally Nose: Normal external nose present Face and sinus: Normal facial exam Eyes: Appearance normal, both eyes and all related structures Neck: Normal visual inspection with a palpable posterior cervical lymph node, no TTP, Yes full ROM Respiratory: Normal respiratory effort and able to speak in complete sentences. Skin: No rashes or lesions noted Neuro: Patient oriented x3 Extremities: Normal to inspection [facility] Medical History Acute cholecystitis Surgical History S/P laparoscopic cholecystectomy (05/01/23) Hx of tubal ligation Hx of section Social History Household Members: Spouse and Children Housing: Apartment Do you presently have visiting nurse or other home services: No Alcohol intake: never Patient Tobacco Use Status: Former Tobacco user service: No Current occupational status: unemployed Current occupation: right hand dominant Review of Systems Const All systems reviewed & are unremarkable except as noted in HPI and below Physical Exam Vital Signs: Last Vital Signs Temp 98.3 F 05/03/24 10:03 Pulse 84 05/03/24 10:03 BP 110/62 05/03/24 10:03 Pulse Ox 98 05/03/24 10:03 BMI result Body Mass Index 22.5 Assessment & Plan Assessment & Plan (1) Posterior cervical lymphadenopathy: Code(s): R59.0 - Localized enlarged lymph nodes Plan: Plan The patient will self monitor for the resolution of the posterior cervical lymphadenopathy, with follow up with her PCP for a possible ultrasound if resolution does not occur within the next few weeks. Increased fluid intake is advised to support lymphatic drainage. For her adjustment insomnia, hydroxyzine 25 mg is recommended as a trial for sleep aid and anxiety reduction. Melatonin 3-4 mg can be considered, keeping usage moderate to ensure it does not disrupt sleep patterns. . Behavioral interventions such as maintaining a dark sleep environment are recommended, along with pursuing therapy to address chronic stress and grief. Follow-up with her primary care provider is suggested to explore potential additional therapeutic support. Patient was informed and verbally consented to the use of an ambient scribe for clinic note documentation during this visit. (2) Adjustment insomnia: Code(s): F51.02 - Adjustment insomnia Plan: as above Medications: New hydroxyzine HCl 25 mg PO BEDTIME 14 tabs 0RF Coding Level of Care Code New Pt Level 4 (04241) Diagnoses Posterior cervical lymphadenopathy R59.0 Adjustment insomnia F51.02
[2024-05-03 10:03] VITALS: BP 110/62; PULSE 84; TEMP 36.8; O2SAT 98; BMI 22.5
--- OUTSIDE RECORDS SUMMARY | 2024-05-03 10:36 | XMS_ITS ---
Author Organization [facility] Address [address] [place] [id number] Care Team Providers Care Caustic Room Attendant Name Role Phone Kamar RODRIGUEZ, Reji Primary Care Provider Bernardo Thomas Unavailable [phone] Cr Estrella Jr Unavailable REASON FOR VISIT COMMONBILE DUCT STONES Encounters Encounter Location Date Provider Diagnosis [facility] Inpatient [address], [place] [id number] 05/09/2023 Cr Estrella Jr Plan Of Treatment No Information Progress Notes * NEELA CHAUDOB:1980 (44 yo F)Acc No.[id number]:05/09/2023 Progress Notes Patient:?NEELA CHAU Provider:?Cr Estrella MD :1980???Age:43 Y???Sex:Female D ate:05/09/2023 [facility] [address] [facility] Pcp:Reji Galvin MD Subjective: * Chief Complaints: * ???1. COMMONBILE DUCT STONES . * Medical History:? Objective: * Vitals:? Assessment: Plan: * Treatment: * * The named appointment provid er may or may not be the originator of this progress note, and it is not deemed complete until electronically signed by the appointment provider. Sign off status: Pending * Provider:?Cr Estrella MD Date:?0 05/09/2023 Generated for Dwayne pinto/Sukhdeep/eTransmitting on:?05/03/2024 10:35 AM EST
--- OUTSIDE RECORDS SUMMARY | 2024-05-03 10:36 | XMS_ITS | Patient Health Record ---
Author Organization [facility] Address [address] [place] [address] Care Team Providers Care Loss Prevention Manager Name Role Phone Kamar RODRIGUEZ, Reji Primary Care Provider Bernardo Thomas Unavailable [phone] Cr Estrella Jr Unavailable Results Component Value Reference Range Notes MR MRCP Reviewed date:05/09/2023 11:01:57 AM Interpretation: Performing Lab: Notes/Report: [facility] [address] [place] [address] Magnetic Resonance Report Signed Patient: Neela Chau MR#: [id number] : 1980 Acct:[id number] Age/Sex: 43 / F ADM Date: 05/08/23 Loc: .S3 344-[address]: Francisco Rosado MD Ordering Physician: Bernardo Brown Date of Service: 05/08/23 Procedure(s): MR MRCP Accession Number(s): [id number] cc: Reji Galvin MD; Bernardo Brown EXAMINATION: MR ABDOMEN WITHOUT CONTRAST MR CHOLANGIOPANCREATOGRAPHY CLINICAL INFORMATION: Abdominal pain, ultrasound examination shows dilated common bile duct COMPARISON: Ultrasound examination of abdomen on 05/08/2023, 04/29/2023 TECHNIQUE: Examination was performed in a high field strength MRI scanner. Multiplanar multisequence MR imaging of the abdomen was performed without IV contrast enhancement. MR cholangiopancreatography was performed with heavily T2 weighted sequences. 3-dimensional reconstruction of image data was performed. This was performed under concurrent direct supervision and monitoring by radiologist. Maximum intensity projection images were constructed. FINDINGS: MR CHOLANGIOPANCREATOGRAPHY: Gallbladder is surgically absent. Bilateral intra hepatic bile ducts are normal in size without filling defects. Common bile duct measures up to 0.7 cm in diameter, within normal limits for postcholecystectomy status. However, there is a filling defect in distal common bile duct, measuring 0.4 cm in horizontal diameter, 0.6 cm in vertical height, series 6 image #17, series 8 image #1, series 12 image #12, series 4 image #12. Pancreatic duct is normal in size. LIVER: The liver shows a larger 2.3 cm left hepatic dome segment 4 aT2 hyperintense lesion and 2 smaller lateral left hepatic lobe segments 2 and T2 hyperintense lesions measuring 1.1 cm in size and 1.0 cm in size respectively. The calculated hepatic fat percentage is -0.9%, compatible with normal. PANCREAS: No focal pancreatic lesion with abnormal signal can be seen. SPLEEN: Spleen is normal in size without focal lesion. ADRENAL: Bilateral adrenal glands are normal in shape and size. KIDNEYS: Bilateral kidneys are normal in size without focal lesion. MR/MR MRCP IMPRESSION: 1. Status post cholecystectomy. 2. Filling defect in distal common bile duct, measuring 0.4 cm in horizontal diameter, 0.6 cm in vertical height, compatible with choledocholithiasis. 3. Three left hepatic lobe lesions are found in segment 4A and segment 2, largest measuring 2.3 cm in size, reported as echogenic lesion on ultrasound examination, suggestive of hemangiomas. 4. No focal lesion could be seen in lower pole of right kidney over the site of echogenic focus reported on ultrasound examination. Dictated By: Victoria Hemphill Signed By: <Electronically signed by Victoria Hemphill in OV> 05/09/23 0824 DD/ 1708 TD/TT: Plant Puller: [place] [id number] Magnetic Resonance Report Signed Patient: Jhony Chau MR#: [id number] : 1980 Acct:[id number] Age/Sex: 43 / F ADM Date: 05/08/23 Loc: .S3 344-[address]: Francisco Rosado MD Ordering Physician: Bernardo Brown Date of Service: 05/08/23 Procedure(s): MR MRCP Accession Number(s): [id number] cc: Reji Galvin MD; Brown,Bernardo EXAMINATION: MR ABDOMEN WITHOUT CONTRAST MR CHOLANGIOPANCREATOGRAPHY CLINICAL INFORMATION: Abdominal pain, ultr asound examination shows dilated common bile duct COMPARISON: Ultrasound examinati on of abdomen on 05/08/2023, 04/29/2023 TECHNIQUE: Examination was perf ormed in a high field strength MRI scanner. Multiplanar multiseq uence MR imaging of the abdomen was performed without IV contrast enhancement. MR cholangiopancreat ography was performed with heavily T2 weighted sequences. 3-dimensional recons truction of image data was performed. This was performed under conc urrent direct supervision and monitoring by radiologist. Maximum intensity pr ojection images were constructed. FINDINGS: MR CHOLANGIOPANCREATOGRAPHY: Gallbladder is surgi marcos absent. Bilateral intra hepa tic bile ducts are normal in size without filling defects. Common bile duct noemi sures up to 0.7 cm in diameter, within normal limits for postchole cystectomy status. However, there is a filling defect in distal com mon bile duct, measuring 0.4 cm in horizontal diameter, 0.6 cm in vertical height, series 6 image #17, series 8 image #1, series 12 image #12, series 4 image #12. Pancreatic duct is n ormal in size. LIVER: The liver ann ws a larger 2.3 cm left hepatic dome segment 4 aT2 hyperintense lesion and 2 smaller lateral left hepatic lobe segments 2 and T2 hyperintense lesions measuring 1.1 cm in size and 1.0 cm in size respectively. The calculated hepat ic fat percentage is -0.9%, compatible with normal. PANCREAS: No focal p ancreatic lesion with abnormal signal can be seen. SPLEEN: Spleen is no rmal in size without focal lesion. ADRENAL: Bilateral a drenal glands are normal in shape and size. KIDNEYS: Bilateral k idneys are normal in size without focal lesion. MR/MR MRCP IMPRESSION: 1. Status post cholecystectomy. 2. Filling defect in distal common bile duct, measuring 0.4 cm in horizontal diameter, 0.6 cm in vertical height, compatible with choledocholithiasis. 3. Three left hepati c lobe lesions are found in segment 4A and segment 2, largest measuring 2.3 cm in size, reported as echogenic lesion on ultrasound examinati on, suggestive of hemangiomas. 4. No focal lesion c ould be seen in lower pole of right kidney over the site of echogeni c focus reported on ultrasound examination. Dictated By: Victoria Hemphill Signed By: <Sana farmer signed by Victoria Hemphill in OV> 05/09/23823 DD/ 07 TD/TT: Plant Puller: Complete Blood Count Auto Di ff Reviewed date:05/09/2023 11:01:07 AM Interpretation: Performing Lab:[facility], [address] [place] [id number] Notes/Report: White Blood Count 5.6 4.8-10.8 X10*3/uL Red Blood Count 3.83 4.20-5.50 X10*6/uL Hemoglobin 11.5 12.0-16.0 g/dl Hematocrit 35.1 37.0-47.0 % Mean Corpuscular Volume 91.6 80.0-98.0 fL Mean Corpuscular Hemoglobin 30.0 27.0-33.0 pg Mean Corpuscular HGB Conc 32.8 31.0-35.0 g/dl Red Cell Distribution Width 13.6 11.0-16.0 % Platelet Count 270 160-400 X10*3/uL Mean Platelet Volume 11.1 9.4-12.3 fL Neutrophils Percent Auto 59.1 45-73 % Imm Gran Pct Auto 0.7 0.0-0.4 % Lymphocytes Percent Auto 25.6 20-40 % Monocytes Percent Auto 11.0 2-11 % Eosinophils Percent Auto 2.7 0-4 % Basophils Percent Auto 0.9 0-2 % NRBC Pct Auto 0.0 0.0-0.2 /100WBC Neutrophils Absolute Auto 3.3 2.0-8.3 x10*3/u L Imm Gran Abs Auto 0.04 0.00-0.03 X10*3/uL Lymphocytes Absolute Auto 1.4 1.2-4.9 X10*3/u L Monocytes Absolute Auto 0.6 0.1-1.2 X10*3/uL Eosinophils Absolute Auto 0.2 0.0-0.4 X10*3/u L Basophils Absolute Auto 0.1 0.0-0.2 X10*3/uL NRBC Abs Auto 0.000 0.0-0.012 X10*3/uL FL guidance in OR Reviewed date:05/15/2023 04:29:31 PM Interpretation: Performing Lab: Notes/Report: [address] [address] Fluoroscopy Report Signed Patient: Neela Chau MR#: [id number] : 1980 Acct:[id number] Age/Sex: 43 / F ADM Date: 05/08/23 Loc: HO.S3 344-[address]: Francisco Rosado MD Ordering Physician: Cr Estrella MD Date of Service: 05/09/23 Procedure(s): FL guidance in OR Accession Number(s): [id number] cc: Reji Galvin MD; Cr Estrella MD EXAMINATION: XR FLUOROSCOPY WITH IMAGES CLINICAL INFORMATION: ERCP. COMPARISON: None available. TECHNIQUE: Fluoroscopy Supervised By: Dr. Estrella. Fluoroscopy Time: 483.0 seconds. Cumulative Dose: 106.50 mGy. Images: 9. FINDINGS: Imaging demonstrates an endoscope with a wire/catheter extending into the right and left hepatic ducts. Contrast fills bile ducts. No definite filling defects are seen. Please see Dr. Estrella's report for full details. FL/FL guidance in OR IMPRESSION: Fluoroscopy and spot films provided during ERCP. Dictated By: Stoney Hightower MD Signed By: <Electronically signed by Stoney Hightower MD in OV> 05/11/23 1736 DD/ 1254 TD/TT: Plant Puller: [address] [address] Fluoroscopy Report Signed Patient: Jhony Chau MR#: [id number] : 1980 Acct:[id number] Age/Sex: 43 / F ADM Date: 05/08/23 Loc: HO.S3 344-[address]: Francisco Rosado MD Ordering Physician: Cr Estrella MD Date of Service: 05/09/23 Procedure(s): FL guidance in OR Accession Number(s): [id number] cc: Reji Galvin MD; Cr Estrella MD EXAMINATION: XR FLUOROSCOPY WITH IMAGES CLINICAL INFORMATION: ERCP. COMPARISON: None available. TECHNIQUE: Fluoroscopy Supervis ed By: Dr. Estrella. Fluoroscopy Time: 48 3.0 seconds. Cumulative Dose: 106.50 mGy. Images: 9. FINDINGS: Imaging demonstrates an endoscope with a wire/catheter extending into the right and left h epatic ducts. Contrast fills bile ducts. No definite filling def ects are seen. Please see Dr. Estrella's report for full details. F L/FL guidance in OR IMPRESSION: Fluoroscopy and spot films provided during ERCP. Dictated By: Stoney Hightower MD Signed By: <Electron icalljaqueline signed by Stoney Hightower MD in OV> 05/11/23 1736 DD/ 1254 TD/TT: Plant Puller: ELLIS Complete Blood Count no Diff Reviewed date:05/10/2023 10:21:20 AM Interpretation: Performing Lab:[facility], [address] [place] [id number] Notes/Report: White Blood Count 11.6 4.8-10.8 X10*3/uL Red Blood Count 4.16 4.20-5.50 X10*6/uL Hemoglobin 12.7 12.0-16.0 g/dl Hematocrit 37.9 37.0-47.0 % Mean Corpuscular Volume 91.1 80.0-98.0 fL Mean Corpuscular Hemoglobin 30.5 27.0-33.0 pg Mean Corpuscular HGB Conc 33.5 31.0-35.0 g/dl Red Cell Distribution Width 13.2 11.0-16.0 % Platelet Count 324 160-400 X10*3/uL Mean Platelet Volume 10.6 9.4-12.3 fL NRBC Pct Auto 0.0 0.0-0.2 /100WBC NRBC Abs Auto 0.000 0.0-0.012 X10*3/uL Liver Panel Reviewed date:05/10/2023 10:21:13 AM Interpretation: Performing Lab:[address] [address] Notes/Report: Bilirubin Total 0.9 0.0-1.0 mg/dL Bilirubin Direct 0.4 0.0-0.5 mg/dL Aspartate Amino Transferase 163 5-31 U/L Alanine Aminotransferase 524 0-31 U/L Total Protein 7.5 6.5-8.0 g/dL Albumin Level 4.2 3.5-5.0 g/dL Alkaline Phosphatase 306 39-117 U/L Reason For Referral No Information Encounters Encounter Location Date Provider Diagnosis [facility] Inpatient [address] [place], [place] [phone] 05/09/2023 Cr Estrella Jr Plan Of Treatment No Information Insurance Providers Payer Name Payer Address Payer Phone Subscriber Number Group Number Insured Name Patient Relationship to Insured Coverage Start Date Coverage End Date [facility] [address] [address] [place], [place] [phone] [id number] NEELA CHAU Self - patient is the insured
== END 2024-05-03 11:12 | disposition home or self-care (01) ==
PROVIDERS: Visit Provider Physician Assistant
DX: R59.0 Localized enlarged lymph nodes (principal); F51.02 Adjustment insomnia

== ENCOUNTER → 2024-05-03 09:44 | Outpatient (BNVA) | payer OTHER, SELFPAY | PROVIDERS: Visit Provider Physician Assistant | DX: R59.0 Localized enlarged lymph nodes (principal); F51.02 Adjustment insomnia | CPT/HCPCS: 99202 ==

== ENCOUNTER 2025-02-14 13:22 | Emergency (ER) | payer OTHER, SELFPAY ==
[2025-02-14 13:55] VITALS: BP 131/64; PULSE 76; RESP 16; TEMP 36.4; O2SAT 100; BMI 21.4
--- NOTE | 2025-02-14 13:55 | ED.GENADULT ---
HPI - General Adult General Chief complaint: General Medical Stated complaint: bump under jaw Time Seen by Provider: 02/14/25 18:04 History of Present Illness ED Provider: Dmitry Solano MD HPI narrative: 44-year-old female with no significant medical history but has been dealing with a lot of stress and grief she has had some headaches and right posterior neck discomfort feel a small mass in the back of the neck. She denies myalgias or current headache. No voice change. Related Data Previous Rx's ?Medication ?Instructions ?Recorded hydroxyzine HCl 25 mg tablet 25 mg PO BEDTIME #14 tabs 05/03/24 Allergies Allergy/AdvReac Type Severity Reaction Status Date / Time oxycodone Allergy Itching Verified 02/14/25 13:57 [facility] Past Medical History Medical History Acute cholecystitis Surgical History S/P laparoscopic cholecystectomy (05/01/23) Hx of tubal ligation Hx of section Social History Social History Household Members: Spouse and Children Housing: Apartment Do you presently have visiting nurse or other home services: No Alcohol intake: never Patient Tobacco Use Status: Former Tobacco user service: No Current occupational status: unemployed Current occupation: right hand dominant Physical Exam ED Exam Exam: EXAM: Gen: Alert, awake, well appearing, well hydrated. Head: Atraumatic Eyes: Anicteric, Normal conjunctiva. ENT: Moist mucosa, no pallor. ? Neck: Supple. Very small proximally 2 mm palpable round smooth and mobile mass likely subcutaneous cyst without overlying skin changes of the right the posterior neck no lymphadenopathy. Supple neck no tracheal deviation normal voice Skin: ?No observable rash or bruising on exposed or examined skin Respiratory: Breathing comfortably, No distress.Clear to auscultation bilaterally, symmetric chest expansion, No wheeze, rales, ronchi. Cardiovascular: Regular rate and rhythm. No murmurs or rub. Well perfused periphery, warm extremities. No edema. ? Abdominal: No focal tenderness. Soft, no objective distension. No palpable masses or obvious organomegaly. ?No guarding, no rebound tenderness or other peritoneal findings. : No flank tenderness. Neuro: Alert. Gross movement of all extremities intact. ? Psych: Calm. Cooperative. MSK: No grossly visible deformity. Vital signs: See flowsheet Vital Signs: Vital Signs - 24 hr 02/14/25 13:55 Temperature 97.5 F Pulse Rate 76 Respiratory Rate 16 Blood Pressure 131/64 Pulse Oximetry 100 Oxygen Delivery Method Room Air BMI result Body Mass Index 21.4 Course Course Course Narrative: This is a Rapid Medical Exam performed in triage by Montse Samayoa PA-C. Full HPI, ROS and PE to be performed by primary ED provider. 44 yo F w/pmhx anxiety presenting to the ED c/o painful lump to right posterior head scalp August, and lump beneath right jaw x today. Reports weight loss since August from 168 lb to 108 - multiple losses in family. Also reports AYALA. Denies fever, chills PE: Small mobile lump/cyst noted to right posterior scalp and right submandibular region. Uvula midline. Talking in complete sentences Plan: Labs, viral testing, rapid strep Medical Decision Making Medical Decision Making MDM Narrative: 44-year-old female with chronic, ongoing, intermittent, likely tension or stress headaches. Non-focal neurologic examination looks well reassuring. She's primarily here concerned about a tiny subcutaneous mass or nodule. On examination, this is probably a 2 mm mobile spherical lesion just under the skin overlying the paraspinal superior cervical neck muscles most consistent with tiny lipoma or cyst that is stable without significant growth per her and her partner at the bedside. Reassuring exam otherwise. Lab Data 02/14/25 14:22 02/14/25 14:22 Labs: Lab Results 02/14/25 Range/Units 14:22 WBC 2.3 L (4.8-10.8) X10*3/uL RBC 4.34 (4.20-5.50) X10*6/uL Hgb 13.0 (12.0-16.0) g/dl Hct 39.5 (37.0-47.0) % MCV 91.0 (80.0-98.0) fL MCH 30.0 (27.0-33.0) pg MCHC 32.9 (31.0-35.0) g/dl RDW 12.6 (11.0-16.0) % Plt Count 192 D (160-400) X10*3/uL MPV 10.6 (9.4-12.3) fL Immature Gran % (Auto) 0.0 (0.0-0.4) % Neut % (Auto) 28.8 L (45-73) % Lymph % (Auto) 53.1 H (20-40) % Crisp % (Auto) 15.9 H (2-11) % Eos % (Auto) 1.8 (0-4) % Baso % (Auto) 0.4 (0-2) % Lymph # (Auto) 1.2 (1.2-4.9) X10*3/uL Crisp # (Auto) 0.4 (0.1-1.2) X10*3/uL Eos # (Auto) 0.0 (0.0-0.4) X10*3/uL Baso # (Auto) 0.0 (0.0-0.2) X10*3/uL Abs Immat Gran (auto) 0.00 (0.00-0.03) X10*3/uL Absolute Neuts (auto) 0.7 L (2.0-8.3) x10*3/uL Absolute Nucleated RBC 0.000 (0.0-0.012) X10*3/uL Nucleated RBC % (auto) 0.0 (0.0-0.2) /100WBC Smear Tech's Comments VERIFIED ESR 10 (1-20) MM/HR Sodium 142 (135-145) mmol/L Potassium 4.3 (3.3-5.1) mmol/L Chloride 109 H (96-108) mmol/L Carbon Dioxide 29 (22-29) mmol/L Anion Gap 8 L (12-20) BUN 9 (9-16) mg/dL Creatinine 0.66 (0.5-1.4) mg/dL Estim Creat Clear Calc 90.9 Estimated GFR > 60 Random Glucose 82 (60-115) mg/dL Calcium 9.2 (8.4-10.2) mg/dL Magnesium 2.2 (1.6-2.6) mg/dL Total Bilirubin 0.2 (0.0-1.0) mg/dL Direct Bilirubin < 0.2 (0.0-0.5) mg/dL AST 44 H (5-31) U/L ALT 17 (0-31) U/L Alkaline Phosphatase 63 (39-117) U/L C-Reactive Protein < 0.10 (< or = 0.50) mg/dL Total Protein 7.3 (6.5-8.0) g/dL Albumin 4.8 (3.5-5.0) g/dL Hold Red Top See Note Influenza Type A (PCR) POSITIVE A (Negative) Influenza Type B (PCR) NEGATIVE (Negative) RSV RNA Qual (PCR) NEGATIVE (Negative) SARS-CoV-2 RNA (RT-PCR) NEGATIVE (Negative) S. pyogenes GrpA RAFI Negative (Negative) Discharge Plan Discharge Clinical Impression: Mass in neck, Influenza A Patient Disposition: Home, Self-Care Instructions: Influenza (ED) Additional Instructions: Today you were evaluated in the emergency department your primary concern was for a very small and non growing mass in the back of the neck. On palpation this seems like a very small round mobile mass likely a cyst which is almost always benign but needs to be followed closely by your primary doctor. You had a reassuring physical examination. You tested positive for influenza Prescriptions: No Action hydroxyzine HCl 25 mg tablet 25 mg PO BEDTIME Qty: 14 0RF Interventions: ED Discharge Assessment Last Done: 02/14/25 18:31 Discharge Date/Time: 02/14/25 18:31 Print Language: [place]
[2025-02-14 14:29] LABS: Hematocrit 39.5 % (37.0-47.0); Hemoglobin 13.0 g/dl (12.0-16.0); Imm Gran Abs Auto 0.00 X10*3/uL (0.00-0.03); Imm Gran Pct Auto 0.0 % (0.0-0.4); Lymphocytes Absolute Auto 1.2 X10*3/uL (1.2-4.9); MANUAL DIFF FLAG SCAN; Mean Corpuscular HGB Conc 32.9 g/dl (31.0-35.0); Mean Corpuscular Hemoglobin 30.0 pg (27.0-33.0); Mean Corpuscular Volume 91.0 fL (80.0-98.0); NRBC Abs Auto 0.000 X10*3/uL (0.0-0.012); NRBC Pct Auto 0.0 /100WBC (0.0-0.2); Platelet Count 192 X10*3/uL (160-400); Red Blood Count 4.34 X10*6/uL (4.20-5.50); SCAN SMEAR FLAG 1
[2025-02-14 14:35] LABS: White Blood Count 2.3 X10*3/uL (4.8-10.8)
[2025-02-14 14:37] LABS: Strep A Nucleic Acid Negative (Negative)
[2025-02-14 14:45] LABS: Alanine Aminotransferase 17 U/L (0-31); Albumin Level 4.8 g/dL (3.5-5.0); Alkaline Phosphatase 63 U/L (39-117); Anion Gap 8 (12-20); Aspartate Amino Transferase 44 U/L (5-31); Blood Urea Nitrogen 9 mg/dL (9-16); Calcium 9.2 mg/dL (8.4-10.2); Carbon Dioxide 29 mmol/L (22-29); Chloride 109 mmol/L (96-108); Creatinine Clr Calc Pharmacy 90.9; Estimated Glomerular Filt Rate > 60; Magnesium 2.2 mg/dL (1.6-2.6); Potassium 4.3 mmol/L (3.3-5.1); Sodium 142 mmol/L (135-145); Total Protein 7.3 g/dL (6.5-8.0)
[2025-02-14 15:06] LABS: Resp Syncy Virus RNA Qual PCR NEGATIVE (Negative); SARS COV2 PCR INHOUSE NEGATIVE (Negative)
--- OUTSIDE RECORDS SUMMARY | 2025-02-14 17:55 | XMS_ITS | Patient Health Record ---
Author Organization [facility] Address [address] [place] [address] Care Team Providers Care Sales Leader Name Role Phone Kamar RODRIGUEZ, [place] Primary Care Provider UnaBernardo Gamboa Unavailable [phone] Reason For Referral No Information Plan Of Treatment No Information Insurance Providers Payer Name Payer Address Payer Phone Subscriber Number Group Number Insured Name Patient Relationship to Insured Coverage Start Date Coverage End Date [facility] [address] [address] [place], [place] [id number] NEELA CHAU Self - patient is the insured
[2025-02-14 18:31] VITALS: BP 121/60; PULSE 78; RESP 16; TEMP 36.8; O2SAT 99
== END 2025-02-14 18:31 | disposition home or self-care (01) ==
PROVIDERS: Physician Assistant; Emergency Provider Emergency Medicine
DX: J10.1 Influenza due to other identified influenza virus with other respiratory manifestations (principal); R22.1 Localized swelling, mass and lump, neck; M54.9 Dorsalgia, unspecified; Z87.891 Personal history of nicotine dependence
CPT/HCPCS: 36415; 80048; 80076; 83735; 85025; 85652; 86140; 87637; 87651; 99283; 99284